=== PATIENT | male | born 1935 | race Caucasian/White ===

== ENCOUNTER 2018-08-13 09:12 | Inpatient (IN) ==
--- NOTE | 2018-08-13 09:43 | Emergency Department Note ---
Disposition Clinical Impression: Elevated troponin, Frail elderly, Tremor, Elbow injury, Abrasion, Head contusion, Colitis, Sepsis, UTI (urinary tract infection), Kidney stone, Prostatic hypertrophy, Hernia, Cholelithiasis, Pancreatitis, chronic Disposition: Admitted As Inpatient Referrals: Jael Hobson CNP [Primary Care Provider] - Forms: ED Satisfaction Letter, Work/School Release General Adult HPI - General Chief complaint: ED General Medical Stated complaint: Multiple complaints Time Seen by Provider: 08/13/18 09:16 - History of Present Illness HPI Narrative: 82-year-old male reports emergency department concerned with a fever. The patient states he took his temperature last night and had a temp of 101.7 at home. He was scheduled for a urologic procedure today, he called his urologist last evening, they recommended he come to the emergency department and reportedly could not do the procedure secondary to a fever. The patient reports he was tired last night and decided to come to the ED today instead of last evening. The patient states he has had some nonbloody diarrhea. No vomiting or abdominal pain. He is not anticoagulated. The patient denies chest pain shortness of breath cough runny nose or pain or sore throat. He has a Ortez catheter in place. There is no history of acute back pain. The patient describes prior spinal surgery. The patient states he slipped and fell and scraped his elbow and hit his head. He does not think he broke his elbow. No convulsions loss of consciousness or confusion noted. There is no history of slurred speech and lateral arm or leg weakness or numbness, facial drooping, or neck pain. The patient denies injury to the extremities otherwise. He has a chronic tremor and has been evaluated for Parkinson's prior but has no history of Parkinson's disease. Pain Scale: 0 - Related Data Home Medications Medication Instructions Recorded Confirmed Atorvastatin [Lipitor] 80 mg PO HS 04/02/17 08/13/18 Lisinopril [Zestril] 40 mg PO DAILY 04/02/17 08/13/18 Metoprolol [Lopressor] 50 mg PO BID 04/02/17 08/13/18 Nitroglycerin [Nitrostat] 0.4 mg SL PER PKG DI 04/02/17 08/13/18 Primidone [Mysoline] 50 mg PO BID 04/02/17 08/13/18 glipiZIDE [Glipizide ER] 5 mg PO DAILY 04/02/17 08/13/18 Ibuprofen [Motrin] 800 mg PO TID PRN 08/13/18 08/13/18 Tamsulosin HCl [Flomax] 0.4 mg PO HS 08/13/18 08/13/18 Allergies Allergy/AdvReac Type Severity Reaction Status Date / Time No Known Allergies Allergy Verified 08/09/18 14:59 All systems ED: reviewed and negative except as stated. Past Medical History - Past Medical History Medical history: Reports: diabetes, hyperlipidemia, hypertension Surgical history: Reports: coronary bypass (CABG) Psychiatric history: Reports: no psych history - Social History Smoking Status: Never smoker Smokeless Tobacco Status: No Alcohol use: Reports: none Drug use: Reports: none Physical Exam - General Limitations: no limitations General appearance: alert, in no apparent distress - Head Head exam: atraumatic, normocephalic, normal inspection - Eye Eye exam: Present: normal appearance, EOMI, miosis. Absent: scleral icterus, conjunctival injection - ENT ENT exam: normal exam, normal oropharynx, mucous membranes moist - Neck Neck exam: Present: normal inspection, full ROM, trachea midline. Absent: tenderness - Chest Chest inspection: Present: normal inspection, symmetric chest wall rise. Absent: tenderness - Respiratory Respiratory exam: Present: normal lung sounds bilaterally. Absent: respiratory distress, prolonged expiratory phase - Cardiovascular Cardiovascular exam: Present: regular rate, normal rhythm, normal heart sounds - Abdominal Exam Abdominal exam: Present: soft, Non-Tender, normal bowel sounds. Absent: tender ness, distention, guarding, rebound, rigidity, trauma - Extremities Exam Extremities exam: Present: full ROM, normal capillary refill. Absent: normal inspection (Right elbow skin tears are noted, no deep suturable laceration appreciated. There is a full range of motion in the wrists elbows shoulders ankles knees and hips without evidence of trauma to the extremities otherwise. The patient has no bony tenderness over the right elbow and a full range of mo tion reveals no limitation or eric bony or joint defect.), tenderness, pedal edema, joint swelling, calf tenderness - Expanded Lower Extremity Exam Neurovascular/Tendon exam: Present: normal capillary refill. Absent: motor deficit, sensory deficit, tendon deficit, extremity cold to touch, pallor - Back Exam Back exam: Present: normal inspection, full ROM, other (Chronic thoracic or lumbar deformity appreciated. No tenderness.). Absent: tenderness, CVA tenderness (R), CVA tenderness (L), paraspinal tenderness, vertebral tenderness - Neurological Exam Neurological exam: Present: alert, oriented X3, CN II-XII intact. Absent: motor sensory deficit - Psychiatric Psychiatric exam: Present: normal affect, normal mood - Skin Skin exam: Present: warm, dry, intact, normal color Course Vital Signs Temperature 98.6 F 08/13/18 09:16 Pulse Rate 71 08/13/18 09:16 Respiratory Rate 18 08/13/18 09:16 Blood Pressure 144/66 08/13/18 09:16 O2 Sat by Pulse Oximetry 93 08/13/18 09:16 Temperature 98.6 F 08/13/18 09:16 Pulse Rate 94 08/13/18 15:06 Respiratory Rate 20 08/13/18 15:06 Blood Pressure 132/104 08/13/18 15:06 O2 Sat by Pulse Oximetry 99 08/13/18 15:06 Oxygen Delivery Oxygen Delivery Room Air Medical Decision Making - MDM Narrative Medical decision making narrative: The patient is elderly, he describes a fever last evening, he called his urologist regarding the fever and they recommended he come to the ED for evaluation. He is reportedly scheduled for urologic procedure. The patient describes a few episodes of nonbloody diarrhea. There is no history of abdominal pain. He has a chronic tremor and slipped and fell and hit his head and scraped his elbow. He does not think he broke his elbow. CT scan of the head shows no acute disease. EKG shows left bundle branch block, chronic, troponin initially elevated, aspirin given. Urinalysis notably abnormal, white count elevated, the patient appears to meet SIRS/sepsis criteria lactate minimally elevated. IV fluids given Rocephin initially given. Blood cultures were sent. I discussed the case with the hospitalist on-call who recommended CT of the abdomen, CT obtained which shows multiple nonacute processes however colitis is noted. Given the patient is elderly, meets SIRS/sepsis criteria, demonstrates an elevated troponin with a known history of CAD and EKG abnormalities, and has an apparent UTI with colitis I thought it would be appropriate to admit the patient. The hospitalist has reviewed the CT report and recommended Zosyn. Zosyn was ordered. Aspirin was ordered. The patient denies any chest pain. Second troponin minimally elevated. The hospitalist has accepted the patient to his care. Cardiology will be consulted. The patient's highly agreeable to admission. He appears to be stable. - Lab Data Lab results reviewed: Yes I reviewed the patient's lab results. Result diagrams: 08/13/18 10:55 08/13/18 10:55 Lab Results 08/13/18 08/13/18 08/13/18 Range/Units 10:10 10:55 10:55 WBC 18.7 H (4.3-11.1) K/mcL RBC 4.51 (4.19-5.50) M/mcL Hgb 13.3 (12.9-16.9) g/dL Hct 39.1 (37.5-50.1) % MCV 86.7 (83.0-100.0) fL MCH 29.5 (28.0-33.3) pg MCHC 34.0 (31.6-35.5) g/dL RDW 12.5 (11.5-14.5) % Plt Count 167 (140-400) K/mcL MPV 10.6 (9.4-12.4) fL Immature Gran % 0.7 (0-4) % Seg Neutrophils % 83.2 % Lymphocytes % 5.1 % Monocytes % 10.1 % Eosinophils % 0.6 % Basophils % 0.3 % Neutrophils # 15.6 H (1.6-8.9) K/mcL Lymphocytes # 1.0 (0.6-4.6) K/mcL Monocytes # 1.9 H (0.0-1.3) K/mcL Eosinophils # 0.1 (0.0-0.6) K/mcL Basophils # 0.1 (0.0-0.2) K/mcL PT 15.2 H (9.4-12.1) Seconds INR 1.4 APTT 29.6 (26.0-36.0) Seconds Sodium (136-145) mEq/L Potassium (3.5-5.1) mEq/L Chloride (98-107) mEq/L Carbon Dioxide (23-29) mEq/L BUN (8-23) mg/dL Creatinine (0.70-1.30) mg/dL Est GFR ( Amer) (> 60) Est GFR (Non-Af Amer) (> 60) BUN/Creatinine Ratio (6-26) Glucose (70-105) mg/dL Calculated Osmolality (280-300) Lactic Acid (0.5-2.2) mmol/L Calcium (8.6-10.3) mg/dL Magnesium (1.6-2.6) mg/dL Total Bilirubin (0.3-1.0) mg/dL AST (13-39) Units/L ALT (7-52) Units/L Alkaline Phosphatase (34-104) Units/L Troponin I (< 0.04) ng/mL Serum Total Protein (6.4-8.9) g/dL Albumin (3.5-5.7) g/dL Globulin (2.4-3.5) g/dL Albumin/Globulin Ratio (1.1-2.2) Urine Color Dark Yellow (Yellow) Urine Clarity Turbid A (Clear) Urine pH 6.0 (5.0-8.0) pH Units Ur Specific [place] 1.011 (1.010-1.025) Urine Protein 30 H (Neg-Trace) mg/dL Urine Glucose (UA) Normal (Normal) mg/dL Urine Ketones Negative (Negative) mg/dL Urine Blood Small H (Negative) Urine Nitrite Positive A (Negative) Urine Bilirubin Negative (Negative) Urine Urobilinogen Normal (Normal) mg/dL Ur Leukocyte Esterase Large H (Negative) Urine Microscopic RBC Present (0-3) per hpf Urine Microscopic WBC TNTC H (0-3) per hpf Ur Squamous Epith Cells None Seen (None-Few) per lpf Urine Bacteria Many H (None-Few) per hpf Hyaline Casts None Seen (None-Few) per lpf Urine Yeast Present H (None Seen) per hpf Ur Culture Indicated? YES A (NO) 08/13/18 08/13/18 08/13/18 Range/Units 10:55 10:55 15:02 WBC (4.3-11.1) K/mcL RBC (4.19-5.50) M/mcL Hgb (12.9-16.9) g/dL Hct (37.5-50.1) % MCV (83.0-100.0) fL MCH (28.0-33.3) pg MCHC (31.6-35.5) g/dL RDW (11.5-14.5) % Plt Count (140-400) K/mcL MPV (9.4-12.4) fL Immature Gran % (0-4) % Seg Neutrophils % % Lymphocytes % % Monocytes % % Eosinophils % % Basophils % % Neutrophils # (1.6-8.9) K/mcL Lymphocytes # (0.6-4.6) K/mcL Monocytes # (0.0-1.3) K/mcL Eosinophils # (0.0-0.6) K/mcL Basophils # (0.0-0.2) K/mcL PT (9.4-12.1) Seconds INR APTT (26.0-36.0) Seconds Sodium 132 L (136-145) mEq/L Potassium 3.2 L (3.5-5.1) mEq/L Chloride 104 (98-107) mEq/L Carbon Dioxide 24 (23-29) mEq/L BUN 14 (8-23) mg/dL Creatinine 0.97 (0.70-1.30) mg/dL Est GFR ( Amer) > 60 (> 60) Est GFR (Non-Af Amer) > 60 (> 60) BUN/Creatinine Ratio 14 (6-26) Glucose 165 H (70-105) mg/dL Calculated Osmolality 278 L (280-300) Lactic Acid 2.3 H 1.6 (0.5-2.2) mmol/L Calcium 9.2 (8.6-10.3) mg/dL Magnesium 1.6 (1.6-2.6) mg/dL Total Bilirubin 1.3 H (0.3-1.0) mg/dL AST 17 (13-39) Units/L ALT 8 (7-52) Units/L Alkaline Phosphatase 80 (34-104) Units/L Troponin I 0.07 H* (< 0.04) ng/mL Serum Total Protein 6.1 L (6.4-8.9) g/dL Albumin 3.4 L (3.5-5.7) g/dL Globulin 2.7 (2.4-3.5) g/dL Albumin/Globulin Ratio 1.3 (1.1-2.2) Urine Color (Yellow) Urine Clarity (Clear) Urine pH (5.0-8.0) pH Units Ur Specific [place] (1.010-1.025) Urine Protein (Neg-Trace) mg/dL Urine Glucose (UA) (Normal) mg/dL Urine Ketones (Negative) mg/dL Urine Blood (Negative) Urine Nitrite (Negative) Urine Bilirubin (Negative) Urine Urobilinogen (Normal) mg/dL Ur Leukocyte Esterase (Negative) Urine Microscopic RBC (0-3) per hpf Urine Microscopic WBC (0-3) per hpf Ur Squamous Epith Cells (None-Few) per lpf Urine Bacteria (None-Few) per hpf Hyaline Casts (None-Few) per lpf Urine Yeast (None Seen) per hpf Ur Culture Indicated? (NO) 08/13/18 Range/Units 15:02 WBC (4.3-11.1) K/mcL RBC (4.19-5.50) M/mcL Hgb (12.9-16.9) g/dL Hct (37.5-50.1) % MCV (83.0-100.0) fL MCH (28.0-33.3) pg MCHC (31.6-35.5) g/dL RDW (11.5-14.5) % Plt Count (140-400) K/mcL MPV (9.4-12.4) fL Immature Gran % (0-4) % Seg Neutrophils % % Lymphocytes % % Monocytes % % Eosinophils % % Basophils % % Neutrophils # (1.6-8.9) K/mcL Lymphocytes # (0.6-4.6) K/mcL Monocytes # (0.0-1.3) K/mcL Eosinophils # (0.0-0.6) K/mcL Basophils # (0.0-0.2) K/mcL PT (9.4-12.1) Seconds INR APTT (26.0-36.0) Seconds Sodium (136-145) mEq/L Potassium (3.5-5.1) mEq/L Chloride (98-107) mEq/L Carbon Dioxide (23-29) mEq/L BUN (8-23) mg/dL Creatinine (0.70-1.30) mg/dL Est GFR ( Amer) (> 60) Est GFR (Non-Af Amer) (> 60) BUN/Creatinine Ratio (6-26) Glucose (70-105) mg/dL Calculated Osmolality (280-300) Lactic Acid (0.5-2.2) mmol/L Calcium (8.6-10.3) mg/dL Magnesium (1.6-2.6) mg/dL Total Bilirubin (0.3-1.0) mg/dL AST (13-39) Units/L ALT (7-52) Units/L Alkaline Phosphatase (34-104) Units/L Troponin I 0.13 H* (< 0.04) ng/mL Serum Total Protein (6.4-8.9) g/dL Albumin (3.5-5.7) g/dL Globulin (2.4-3.5) g/dL Albumin/Globulin Ratio (1.1-2.2) Urine Color (Yellow) Urine Clarity (Clear) Urine pH (5.0-8.0) pH Units Ur Specific [place] (1.010-1.025) Urine Protein (Neg-Trace) mg/dL Urine Glucose (UA) (Normal) mg/dL Urine Ketones (Negative) mg/dL Urine Blood (Negative) Urine Nitrite (Negative) Urine Bilirubin (Negative) Urine Urobilinogen (Normal) mg/dL Ur Leukocyte Esterase (Negative) Urine Microscopic RBC (0-3) per hpf Urine Microscopic WBC (0-3) per hpf Ur Squamous Epith Cells (None-Few) per lpf Urine Bacteria (None-Few) per hpf Hyaline Casts (None-Few) per lpf Urine Yeast (None Seen) per hpf Ur Culture Indicated? (NO) - Radiology Data Radiology results reviewed: Yes I reviewed the patient's radiology results.
[2018-08-13] MEDS ORDERED: Tdap (Boostrix) Vaccine 0.5 ML SYRINGE IM ONE (09:52)
[2018-08-13 10:33] LABS: Bilirubin,Urine Negative (Negative); Blood,Urine Small (Negative); Clarity,Urine Turbid (Clear); Color,Urine Dark Yellow (Yellow); Glucose,Urine (UA) Normal (Normal); Ketones,Urine Negative (Negative); Leukocyte Esterase,Urine Large (Negative); Nitrite,Urine Positive (Negative); Protein,Urine 30 mg/dL (Neg-Trace); Specific Gravity,Urine 1.011 (1.010-1.025); Urobilinogen,Urine Normal (Normal)
[2018-08-13 10:37] LABS: Bacteria,Urine Many per hpf (None-Few); Hyaline Casts,Urine None Seen per lpf (None-Few); Squamous Epithelial Cell,Urine None Seen per lpf (None-Few); WBC,Urine TNTC per hpf (0-3)
[2018-08-13 10:54] LABS: RBC,Urine Present per hpf (0-3); Yeast,Urine Present per hpf (None Seen)
[2018-08-13 11:16] LABS: Basophils # 0.1 K/mcL (0.0-0.2); Basophils % 0.3 %; Eosinophils # 0.1 K/mcL (0.0-0.6); Eosinophils % 0.6 %; Hematocrit 39.1 % (37.5-50.1); Hemoglobin 13.3 g/dL (12.9-16.9); Immature Granulocytes % 0.7 % (0-4); Lymphocytes % 5.1 %; Mean Corpuscular Hemoglobin 29.5 pg (28.0-33.3); Mean Corpuscular Volume 86.7 fL (83.0-100.0); Mean Platelet Volume 10.6 fL (9.4-12.4); Monocytes # 1.9 K/mcL (0.0-1.3); Monocytes % 10.1 %; Neutrophils # 15.6 K/mcL (1.6-8.9); Platelet Count 167 K/mcL (140-400); Red Blood Count 4.51 M/mcL (4.19-5.50); Red Cell Distribution Width 12.5 % (11.5-14.5); Segmented Neutrophils % 83.2 %
[2018-08-13 11:25] LABS: INR 1.4; Prothrombin Time 15.2 Seconds (9.4-12.1)
[2018-08-13 11:28] LABS: Activated Partial Thrombo Time 29.6 Seconds (26.0-36.0)
[2018-08-13 11:39] LABS: Alanine Aminotransferase 8 Units/L (7-52); Albumin 3.4 g/dL (3.5-5.7); Albumin/Globulin Ratio 1.3 (1.1-2.2); Alkaline Phosphatase 80 Units/L (34-104); Aspartate Amino Transferase 17 Units/L (13-39); BUN/Creatinine Ratio 14 (6-26); Bilirubin,Total 1.3 mg/dL (0.3-1.0); Blood Urea Nitrogen 14 mg/dL (8-23); Calcium 9.2 mg/dL (8.6-10.3); Carbon Dioxide 24 mEq/L (23-29); Chloride 104 mEq/L (98-107); Globulin 2.7 g/dL (2.4-3.5); Glucose 165 mg/dL (70-105); Osmolality,Calculated 278 (280-300); Potassium 3.2 mEq/L (3.5-5.1); Sodium 132 mEq/L (136-145); Total Protein 6.1 g/dL (6.4-8.9); Troponin I 0.07 ng/mL (< 0.04); eGFR For Non-African Americans > 60 (> 60)
[2018-08-13] MEDS ORDERED: cefTRIAXone 1,000 MG in Water for inj. (sterile) 20 ML 10 ML IVP ONE (11:40)
[2018-08-13] MEDS ORDERED: Aspirin 325 MG TABLET PO ONE (11:40)
[2018-08-13] MEDS ORDERED: 0.9 % Sodium Chloride 1,000 ML IVC ONE ×2 (11:40→14:12)
[2018-08-13] MEDS ORDERED: Isovue-370 500 ML BOTTLE IVP ONE (11:57)
[2018-08-13 13:16] LABS: Magnesium 1.6 mg/dL (1.6-2.6)
[2018-08-13] MEDS ORDERED: Piperacillin/Tazobactam 3.375 GM in 0.9 % Sodium Chloride Mini Bag 100 ML IVPB ONE (15:36)
[2018-08-13 16:19] LABS: Lipase 3 Units/L (11-82)
[2018-08-13] MEDS ORDERED: Naloxone 0.4 MG/ML INJ IVP PRN (19:15)
[2018-08-13] MEDS ORDERED: Nitroglycerin 0.4 MG TAB.SUBL SL PRN (19:30)
[2018-08-13] MEDS: 0.9 % Sodium Chloride w KCl 20 MEQ/1,000 ML MLS IVC SCH (21:00)
[2018-08-13] MEDS: Primidone 50 MG TABLET PO SCH (21:01)
--- NOTE | 2018-08-13 21:10 | Internal Med History&Physical ---
Date of Encounter: 08/13/18 Time of Encounter: 19:00 Internal Medicine - H&P: HPI Chief complaint: Non-bladdy diarrhea/sepsis Admitted From: Home Plans for Post Hospital Care: Home History of present illness: The patient is an 82-year-old male. He has had nonbloody diarrhea without nausea or vomiting or abdominal pain for about 3 days. He developed fever of 101.7 yesterday late afternoon. He came to the emergency room last night for evaluation and treatment. He has not been feeling well for the last 2-3 weeks. He was treated with an antibiotic at the beginning of that period of time. He developed difficulty voiding about 3 weeks ago. He received Ortez catheter. After about 3 days it was discontinued. It had to be reinserted a few days later. The catheter was supposed to be removed todayshe was scheduled for some urological procedure. He feels weak. He has decreased intake of foods and fluids. Denies chest pain and difficulty breathing. Denies coughing and wheezing. The patient has had unsteady gait for at least a few years. He sleeps an hour yesterday; scrapped his right elbow and hit his head. It did not change his ability to ambulate for the future. PAST MEDICAL HX: He has had coronary artery disease; had CABG surgery in the past. He is treated for type 2 diabetes mellitus, hypertension, hyperlipidemia, BPH and tremor. He takes when necessary ibuprofen for arthritis. PAST FAMILY HX: See below PAST SOCIAL HX: See below REVIEW OF SYSTEMS: All 14 organ systems were reviewed by me with the patient. Positive and pertinent negative findings are listed above. The rest of organ systems is negative. PHYSICAL EXAM: Skin: Free of rash and discoloration. Eyes: Sclera is white. There is no discharge from eyes. ENMT: Oral/pharyngeal mucosa is normal in appearance. There is no discharge from nose or ears. Respiratory: Normal breath sounds with no crackles and wheezes bilaterally. CV: Heart is regular with no gallop or murmur. GI: Abdomen is flat and soft with no palpable mass or visceromegaly. : There is no tenderness in patient's flanks bilaterally. Neuro exam: He has good strength in upper and lower extremities. He has normal eye movements. Psychiatric: He has normal affect. His thought process is appropriate to the situation. ADDITIONAL DATA: Chest x-ray shows normal findings. CT of head/brain without contrast shows vague area of low attenuation involving the left occipital lobe; without sulcal effacement. This likely represents a subacute or chronic infarct. It also shows diffuse cerebral atrophy with chronic small vessel ischemic disease. CT of the abdomen/pelvis with IV contrast shows diffuse circumferential wall thickening of the entirety of the colon. Consistent with a diffuse infectious or inflammatory pancolitis. There is no evidence of pneumatosis, perforation, or free air. It shows bilateral nonobstructing nephrolithiasis, chronic pancreatitis, cholelithiasis, bilateral renal cysts, mild gastroesophageal reflux, mild prostatomegaly and mild to moderate sized left inguinal hernia. CBC shows hemoglobin of 13.3 with a WBC of 18.7 thousand and normal platelet count. EKG now shows normal sinus rhythm without evidence for ischemia or myocardial infarction. BMP shows potassium of 3.2 and random glucose of 165. Otherwise, it is normal. Hepatic panel shows bilirubin of 1.3. Otherwise, it is normal. His troponin is 0.07 and the 0.13. UA shows changes typical for urinary tract infection. A/P: Pancolitis as/possible urinary tract infection/sepsis. I will offer him IV Zosyn and IV Flagyl. He will be on IV normal saline with addition of potassium chloride (hypokalemic) and a clear liquids diet. I will consult the GI service tomorrow morning. Routine stool culture and testing for C. difficile. Possible UTI/sepsis. He received 2 L of IV fluid in the emergency department. I will continue IV fluids at 75 cc/h. He will be on IV Zosyn and IV Flagyl. Elevated troponin. It could represent demand ischemia in the setting of sepsis. The patient has underlying coronary artery disease (had CABG surgery). I feel, that he is not a candidate for any Cardiologic interventions at this time. BPH with urinary tract obstruction. Ortez catheter will stay in. I will consult urology, if needed. He is not a candidate for any urologic interventions at this time. His other problems are listed above in past medical history. That is stable/under control. Past Med Surg Social Fam HX - Past Medical History Medical history: diabetes, hyperlipidemia, hypertension Additional medical history: Coronary Artery disease status post CABG. Tremors Psychiatric history: no psych history - Past Surgical History Surgical History: coronary bypass (CABG) Additional surgical history: Back. Shoulder - Social History Smoking Status: Never smoker Smokeless Tobacco Status: No Alcohol use: none Drug use: none - Family History Sister Hx Family Cancer: (sister 1 stomach cancer sister 2 breast cancer) Internal Medicine - H&P: Meds Atorvastatin [Lipitor] 80 mg PO HS 04/02/17 [History] Lisinopril [Zestril] 40 mg PO DAILY 04/02/17 [History] Metoprolol [Lopressor] 50 mg PO BID 04/02/17 [History] Nitroglycerin [Nitrostat] 0.4 mg SL PER PKG DI 04/02/17 [History] Primidone [Mysoline] 50 mg PO BID 04/02/17 [History] glipiZIDE [Glipizide ER] 5 mg PO DAILY 04/02/17 [History] Ibuprofen [Motrin] 800 mg PO TID PRN 08/13/18 [History] Tamsulosin HCl [Flomax] 0.4 mg PO HS 08/13/18 [History] Allergy/AdvReac Type Severity Reaction Status Date / Time No Known Allergies Allergy Verified 08/09/18 14:59 - Constitutional Vitals: Temp Pulse Resp BP Pulse Ox 99.2 F 102 16 121/71 95 08/13/18 19:59 08/13/18 19:59 08/13/18 19:59 08/13/18 19:59 08/13/18 19:59 General appearance: Present: A&O X 3, no acute distress, answers questions appropriately Exam: xx Internal Med - H&P Results - Labs CBC & Chem 7: 08/13/18 10:55 08/13/18 10:55 Labs: Short CBC 08/13/18 Range/Units 10:55 WBC 18.7 H (4.3-11.1) K/mcL Hgb 13.3 (12.9-16.9) g/dL Hct 39.1 (37.5-50.1) % Plt Count 167 (140-400) K/mcL Neutrophils # 15.6 H (1.6-8.9) K/mcL BMP 08/13/18 10:55 Sodium 132 L Potassium 3.2 L Chloride 104 Carbon Dioxide 24 BUN 14 Creatinine 0.97 Glucose 165 H Calcium 9.2 Cardiac Enzymes 08/13/18 08/13/18 Range/Units 10:55 15:02 Troponin I 0.07 H* 0.13 H* (< 0.04) ng/mL Liver Function 08/13/18 Range/Units 10:55 Total Bilirubin 1.3 H (0.3-1.0) mg/dL AST 17 (13-39) Units/L ALT 8 (7-52) Units/L Alkaline Phosphatase 80 (34-104) Units/L Albumin 3.4 L (3.5-5.7) g/dL Urine 08/13/18 Range/Units 10:10 Urine Color Dark Yellow (Yellow) Urine Clarity Turbid A (Clear) Urine pH 6.0 (5.0-8.0) pH Units Ur Specific [place] 1.011 (1.010-1.025) Urine Protein 30 H (Neg-Trace) mg/dL Urine Glucose (UA) Normal (Normal) mg/dL - Impressions ITS Impressions Chest X-Ray 08/13/18 09:43 IMPRESSION: 1. No active pulmonary disease. D/ / Benja Banuelos MD / Benja Banuelos MD Interpreting Provider: Benja Banuelos MD Head CT 08/13/18 09:51 IMPRESSION: 1. Vague area of low attenuation involving the left occipital lobe without sulcal effacement. This likely represents a subacute to chronic infarct. I would recommend clinical correlation and further evaluation with MRI. 2. Diffuse cerebral atrophy with chronic small vessel ischemic disease. D/ / Benja Banuelos MD / Benja Banuelos MD Interpreting Provider: Benja Banuelos MD Abdomen/Pelvis CT 08/13/18 11:57 IMPRESSION: 1. Diffuse circumferential wall thickening of the entirety of the colon, consistent with a diffuse infectious or inflammatory pancolitis. There is no evidence of pneumatosis, perforation, or free air. 2. Bilateral nonobstructing nephrolithiasis, without evidence of ureteral calculus or hydronephrosis. There is a layering calcification within the urinary bladder. 3. Chronic pancreatitis. 4. Cholelithiasis. 5. Bilateral renal cysts. 6. Mild gastroesophageal reflux. 7. Mild prostatomegaly. 8. Mild to moderate sized left inguinal hernia. D/ / 08/13/2018 15:24:20 Marcell Hutchins MD / sierra Interpreting Provider: Marcell Hutchins MD - Time Spent With Patient Total time spent is greater than 50% in coordination of care (as documented) at patient's floor/unit and/or counseling patient:
[2018-08-14] MEDS: MetroNIDAZOLE 500 MG/100 ML 500 MG/100 ML BAG IVPB SCH ×2 (00:34→06:23)
[2018-08-14] MEDS: Piperacillin/Tazobactam 3.375 GM in 0.9 % Sodium Chloride Mini Bag 100 ML IVPB SCH ×2 (02:39→08:46)
[2018-08-14 05:23] LABS: Basophils # 0.1 K/mcL (0.0-0.2); Basophils % 0.3 %; Eosinophils # 0.1 K/mcL (0.0-0.6); Eosinophils % 0.6 %; Hematocrit 33.6 % (37.5-50.1); Immature Granulocytes % 3.9 % (0-4); Lymphocytes # 1.3 K/mcL (0.6-4.6); Lymphocytes % 7.3 %; Mean Corpuscular HGB Conc 33.3 g/dL (31.6-35.5); Mean Platelet Volume 10.9 fL (9.4-12.4); Monocytes % 11.3 %; Neutrophils # 13.7 K/mcL (1.6-8.9); Platelet Count 155 K/mcL (140-400); Red Blood Count 3.86 M/mcL (4.19-5.50); Red Cell Distribution Width 12.4 % (11.5-14.5); Segmented Neutrophils % 76.6 %
[2018-08-14 05:24] LABS: Hemoglobin 11.2 g/dL (12.9-16.9)
[2018-08-14 05:44] LABS: BUN/Creatinine Ratio 11 (6-26); Blood Urea Nitrogen 10 mg/dL (8-23); Calcium 8.4 mg/dL (8.6-10.3); Carbon Dioxide 20 mEq/L (23-29); Chloride 106 mEq/L (98-107); Glucose 153 mg/dL (70-105); Magnesium 1.4 mg/dL (1.6-2.6); Osmolality,Calculated 278 (280-300); Potassium 3.2 mEq/L (3.5-5.1); Sodium 133 mEq/L (136-145); eGFR For Non-African Americans > 60 (> 60)
[2018-08-14] MEDS: Primidone 50 MG TABLET PO SCH ×2 (08:45→21:22)
[2018-08-14 09:18] LABS: Troponin I 0.21 ng/mL (< 0.04)
--- NOTE | 2018-08-14 10:34 | Cardiology Consult Note ---
Date of Encounter: 08/14/18 Time of Encounter: 10:31 Assessment and Plan (1) Elevated troponin Current Visit: Yes Status: Acute Patient presented for diarrhea and fever, elevated troponins found on admission Denies chest pain or pressure or shortness of breath, admitteed for pancolitis, possible urosepsis Has history of CAD with remote history of CABG 15 years ago EKG NSR with first degree AV block, LBBB, non specific ST changes in anterior leads Troponins trending up to 0.21 from 0.07 Differential includes ACS vs demand ischemia from pancolitis/urosepsis Recommend echo, possible stress based on results Patient not likely candidate for immediate intervention Recommend continued supportive care Further recommendations per Dr. Cronin (2) CAD (coronary artery disease) Current Visit: No Status: Chronic History of CAD with remote CABG, no recent work up here, recommendations as above Qualifiers: Coronary Disease-Associated Artery/Lesion type: bypass graft [place] vs. transplanted heart: [place] heart Associated angina: without angina Qualified Code(s): I25.810 - Atherosclerosis of coronary artery bypass graft(s) without angina pectoris Discussion w patient/family: The assessment and plan as outlined above was discussed with the patient and/or family members who expressed understanding and agreement. All questions were answered. Thank you for involving us in the care of your patient. Please call with any questions. History of Present Illness Consult date: 08/14/18 Requesting physician: Edy Rock Consult reason: elevated troponins Chief complaint: fever History of present illness: Mr. Valderrama is a 82 year old male with a past medical history of CAD with remote CABG, DM, HTN, HLD, BPH. He states he was originally scheduled to come to the hospital yesterday to have his urinary catheter removed along with some other urological procedure. However he developed a fever along with diarrhea and was sent to the ED instead. He denies any chest pain or pressure, denies shortness of breath. Admits to diarrhea and weakness/fatigue. Past Med Surg Social Fam HX - Past Medical History Medical history: diabetes, hyperlipidemia, hypertension Additional medical history: Coronary Artery disease status post CABG. Tremors Psychiatric history: no psych history - Past Surgical History Surgical History: coronary bypass (CABG) Additional surgical history: Back. Shoulder - Social History Smoking Status: Never smoker Smokeless Tobacco Status: No Alcohol use: none Drug use: none - Family History Sister Hx Family Cancer: (sister 1 stomach cancer sister 2 breast cancer) Medications and Allergies Atorvastatin [Lipitor] 80 mg PO HS 04/02/17 [History] Lisinopril [Zestril] 40 mg PO DAILY 04/02/17 [History] Metoprolol [Lopressor] 50 mg PO BID 04/02/17 [History] Nitroglycerin [Nitrostat] 0.4 mg SL PER PKG DI 04/02/17 [History] Primidone [Mysoline] 50 mg PO BID 04/02/17 [History] glipiZIDE [Glipizide ER] 5 mg PO DAILY 04/02/17 [History] Ibuprofen [Motrin] 800 mg PO TID PRN 08/13/18 [History] Tamsulosin HCl [Flomax] 0.4 mg PO HS 08/13/18 [History] Allergy/AdvReac Type Severity Reaction Status Date / Time No Known Allergies Allergy Verified 08/09/18 14:59 All Systems Review: The remainder of the systems were reviewed and are negative - Constitutional Constitutional: fatigue, fever(s), weakness - Cardiovascular Cardiovascular: no chest pain at rest, no chest pain with exertion, no dyspnea at rest, no dyspnea on exertion, no irregular heart rhythm, no radiating jaw, neck or arm pain - Gastrointestinal Gastrointestinal: diarrhea, no abdominal pain, no nausea - Genitourinary Genitourinary: dysuria - Integumentary Integumentary: no erythema - Neurological Neurological: no abnormal speech, no focal weakness, no syncope Physical Examination Vital Signs, Last 4 Hours Temp Pulse Resp BP Pulse Ox 08/14/18 07:05 98.5 F 87 18 99/65 97 General: No Apparent Distress, Other (somnolent) HEENT: Normocephaly, Mucus Membranes Moist, Other (mild abrasions) Neck: No JVD, Normal carotid pulses Cardiac: Reg Rate and Rhythm, Normal S1 and S2, No Murmur Lungs: Normal Breath Sounds, No Wheeze, Rales, Rhonchi Neuro: Alert and responsive, No focal deficits noted Abdomen: Soft, Non-Tender, Other (hyperractiv bowel sounds) Skin: No rashes noted on visualized skin Musculoskeletal: No Chest Wall Tenderness Extremities: No Edema, Normal Pulses Results 08/14/18 04:27 08/14/18 04:27 Lab Results 08/13/18 08/13/18 08/13/18 10:55 10:55 10:55 WBC 18.7 H Hgb 13.3 Hct 39.1 Plt Count 167 INR 1.4 APTT 29.6 Sodium 132 L Potassium 3.2 L Chloride 104 Carbon Dioxide 24 BUN 14 Creatinine 0.97 Glucose 165 H Calcium 9.2 Magnesium 1.6 Total Bilirubin 1.3 H AST 17 ALT 8 Alkaline Phosphatase 80 Troponin I 0.07 H* Lipase 3 L 08/13/18 08/14/18 08/14/18 15:02 04:27 04:27 WBC 17.9 H Hgb 11.2 L D Hct 33.6 L Plt Count 155 INR APTT Sodium 133 L Potassium 3.2 L Chloride 106 Carbon Dioxide 20 L BUN 10 Creatinine 0.91 Glucose 153 H Calcium 8.4 L Magnesium 1.4 L Total Bilirubin AST ALT Alkaline Phosphatase Troponin I 0.13 H* 0.21 H* Lipase - Imaging and Cardiology Chest Xray: report reviewed - EKG Interpretation EKG results cardiology: personally reviewed, sinus rhythm (sinus rhythm with first degree AV block, left bundle branch block, upsloped ST in anterior leads with peaked Ts) Consult Discharge Plan - Plan Referrals: Jael Hobson, [facility] [Primary Care Provider] -
--- NOTE | 2018-08-14 11:07 | Internal Med Progress Note ---
<Lynnette Walker - Last Filed: 08/14/18 11:05> Hospitalist Progress Note - Encounter Date of Encounter: 08/14/18 Time of Encounter: 09:25 - Subjective Interval History: Mr. Trevizo is a 82-year-old male with a past medical history of diabetes, hypertension and CAD status post CABG who presented to the ED with fever, nausea, and diarrhea. Patient states that he was having very frequent episodes of diarrhea previous to coming in. He states that he is not currently having any abdominal pain, chest pain, or difficulty breathing. - Exam Vitals: Temp Pulse Resp BP Pulse Ox 98.5 F 87 18 99/65 97 08/14/18 07:05 08/14/18 07:05 08/14/18 07:05 08/14/18 07:05 08/14/18 07:05 Exam: Constitutional: Alert, in no acute distress Head: Normocephalic, atraumatic Heart: Normal, regular rate and rhythm, no murmurs Lungs: Clear to auscultation, no wheezes, rales, or rhonchi Abdomen: Soft, nondistended, nontender, bowel sounds present and normal, no guarding or rigidity. Extremities: No edema, No clubbing, radial pulse +2/4, capillary refill <2sec. Skin: Skin warm and dry, no lesions, no rashes, no jaundice Neurologic: Cranial nerves II through XII grossly intact, strength 5/5 in all extremities, negative romberg, Psych: Cooperative with exam, good eye contact, cognitive function intact, speech clear, thought process logical, and goal directed - Assessment and Plan (1) Sepsis Current Visit: Yes Status: Acute Assessment and Plan: Elevated heart rate, WBC elevated, initial lactic acid 2.3 and source of infection. Lactic acid repeat 1.6. WBC slightly improvement. Patient was given 2L of NS. Ct scan of abdomen showed pancolitis. Patient positive for c-diff. UA suggestive of bacterial infeciton. Abnormal CT head but no symptoms recently of speech slurring of focal weakness. Negative Romberg. Patient already takes ASA. Heart rate much improved. Plan: - antibiotics: Ceftriaxone ( day 2) and oral Vanco (day 1) - lactic acid improved - blood cultures pending - urine culture pending - stool culture pending - diet: clear liquid diet (2) C. difficile colitis Current Visit: Yes Status: Acute Assessment and Plan: + c-diff. Patient was on antibiotics a couple of weeks ago. See plan above. Continue oral vanco. (3) BPH with obstruction/lower urinary tract symptoms Current Visit: Yes Status: Acute Assessment and Plan: Continue crespo. Will f/u outpatient with urology. (4) UTI (urinary tract infection) Current Visit: Yes Status: Acute Assessment and Plan: Likely due to long-indwelling crespo catheter. Treat with cetriaxone for 3 days. See plan above. (5) Elevated troponin Current Visit: Yes Status: Acute Assessment and Plan: Troponin= 0.07, 0.13, 0.21. Cardiology consulted. patient is not having chest pain. His EKG does show a LBBB but does not meet S[place] criteria. HR 83bpm, QTc 444. Awaiting cardiology recommendations. (6) CAD (coronary artery disease) Current Visit: No Status: Chronic Assessment and Plan: Hx of CABG. Cardiology consulted for elevated troponin. Continue BB, BEAU, and statin. (7) Hypertension Current Visit: Yes Status: Acute Assessment and Plan: well controlled. currently on home medications. Continue metoprolol 50mg BID, Lisinopril 40mg daily. (8) Hypokalemia Current Visit: Yes Status: Acute Assessment and Plan: K = 3.2, replaced with KCl 40 meq. Recheck in the AM. (9) Hypomagnesemia Current Visit: Yes Status: Acute Assessment and Plan: Mg = 1.4, replaced with 2g. Recheck in the AM. DVT Prophylaxis: Heparin subcutaneous - Time Spent with Patient Total time spent is greater than 50% in coordination of care (as documented) at patient's floor/unit and/or counseling patient: Internal Medicine: Result - Labs CBC & Chem 7: 08/14/18 04:27 08/14/18 04:27 Labs: Short CBC 08/13/18 08/14/18 Range/Units 10:55 04:27 WBC 18.7 H 17.9 H (4.3-11.1) K/mcL Hgb 13.3 11.2 L D (12.9-16.9) g/dL Hct 39.1 33.6 L (37.5-50.1) % Plt Count 167 155 (140-400) K/mcL Neutrophils # 15.6 H 13.7 H (1.6-8.9) K/mcL BMP 08/13/18 08/14/18 10:55 04:27 Sodium 132 L 133 L Potassium 3.2 L 3.2 L Chloride 104 106 Carbon Dioxide 24 20 L BUN 14 10 Creatinine 0.97 0.91 Glucose 165 H 153 H Calcium 9.2 8.4 L Cardiac Enzymes 08/13/18 08/13/18 08/14/18 Range/Units 10:55 15:02 04:27 Troponin I 0.07 H* 0.13 H* 0.21 H* (< 0.04) ng/mL Liver Function 08/13/18 Range/Units 10:55 Total Bilirubin 1.3 H (0.3-1.0) mg/dL AST 17 (13-39) Units/L ALT 8 (7-52) Units/L Alkaline Phosphatase 80 (34-104) Units/L Albumin 3.4 L (3.5-5.7) g/dL - ABG Interpretation ABG results: PT/INR, D-dimer PT 15.2 Seconds (9.4-12.1) H 08/13/18 10:55 - Impressions Impressions Abdomen/Pelvis CT 08/13/18 11:57 IMPRESSION: 1. Diffuse circumferential wall thickening of the entirety of the colon, consistent with a diffuse infectious or inflammatory pancolitis. There is no evidence of pneumatosis, perforation, or free air. 2. Bilateral nonobstructing nephrolithiasis, without evidence of ureteral calculus or hydronephrosis. There is a layering calcification within the urinary bladder. 3. Chronic pancreatitis. 4. Cholelithiasis. 5. Bilateral renal cysts. 6. Mild gastroesophageal reflux. 7. Mild prostatomegaly. 8. Mild to moderate sized left inguinal hernia. D/ / 08/13/2018 15:24:20 Marcell Hutchins MD / sierra Interpreting Provider: Marcell Hutchins MD Consult Discharge Plan - Plan Referrals: Jael Hobson, IN[facility]ER [Primary Care Provider] - <Edy Rock - Last Filed: 08/14/18 13:40> Hospitalist Progress Note - Encounter Date of Encounter: 08/14/18 - Exam Vitals: Temp Pulse Resp BP Pulse Ox 98.0 F 82 19 97/59 94 08/14/18 11:22 08/14/18 11:22 08/14/18 11:22 08/14/18 11:22 08/14/18 11:22 - Assessment and Plan (1) Sepsis Current Visit: Yes Status: Acute (2) UTI (urinary tract infection) Current Visit: Yes Status: Acute (3) CAD (coronary artery disease) Current Visit: No Status: Chronic (4) BPH with obstruction/lower urinary tract symptoms Current Visit: Yes Status: Acute (5) C. difficile colitis Current Visit: Yes Status: Acute (6) Hypertension Current Visit: Yes Status: Acute (7) Elevated troponin Current Visit: Yes Status: Acute (8) Hypokalemia Current Visit: Yes Status: Acute (9) Hypomagnesemia Current Visit: Yes Status: Acute - Time Spent with Patient Total time spent is greater than 50% in coordination of care (as documented) at patient's floor/unit and/or counseling patient: Internal Medicine: Result - Labs CBC & Chem 7: 08/14/18 04:27 08/14/18 04:27 Labs: Short CBC 08/14/18 Range/Units 04:27 WBC 17.9 H (4.3-11.1) K/mcL Hgb 11.2 L D (12.9-16.9) g/dL Hct 33.6 L (37.5-50.1) % Plt Count 155 (140-400) K/mcL Neutrophils # 13.7 H (1.6-8.9) K/mcL BMP 08/13/18 08/14/18 10:55 04:27 Sodium 132 L 133 L Potassium 3.2 L 3.2 L Chloride 104 106 Carbon Dioxide 24 20 L BUN 14 10 Creatinine 0.97 0.91 Glucose 165 H 153 H Calcium 9.2 8.4 L Cardiac Enzymes 08/13/18 08/13/18 08/14/18 Range/Units 10:55 15:02 04:27 Troponin I 0.07 H* 0.13 H* 0.21 H* (< 0.04) ng/mL Liver Function 08/13/18 Range/Units 10:55 Total Bilirubin 1.3 H (0.3-1.0) mg/dL AST 17 (13-39) Units/L ALT 8 (7-52) Units/L Alkaline Phosphatase 80 (34-104) Units/L Albumin 3.4 L (3.5-5.7) g/dL - ABG Interpretation ABG results: PT/INR, D-dimer PT 15.2 Seconds (9.4-12.1) H 08/13/18 10:55 - Impressions Impressions Abdomen/Pelvis CT 08/13/18 11:57 IMPRESSION: 1. Diffuse circumferential wall thickening of the entirety of the colon, consistent with a diffuse infectious or inflammatory pancolitis. There is no evidence of pneumatosis, perforation, or free air. 2. Bilateral nonobstructing nephrolithiasis, without evidence of ureteral calculus or hydronephrosis. There is a layering calcification within the urinary bladder. 3. Chronic pancreatitis. 4. Cholelithiasis. 5. Bilateral renal cysts. 6. Mild gastroesophageal reflux. 7. Mild prostatomegaly. 8. Mild to moderate sized left inguinal hernia. D/ / 08/13/2018 15:24:20 Marcell Hutchins MD / sierra Interpreting Provider: Marcell Hutchins MD - Attending Attestation I examined this patient and my medical decision-making was reviewed with the Resident Physician Dr. Walker. I agree with the documented findings, disposition and treatment plan as described except to the extent set forth below. Ms. Valderrama is a 82 y/o M with known PMH of HTN, HLD, CAD s/p CABG, DM2 and BPH pt presented to ER with non bloody diarrhea and lower abdominal pain. His CT of Abd showed diffuse [place]incoln colitis. He did have elevated trop, peaked @ 0.21. He denied any CP. Gen: A, A, O x 3 Chest: Diminished BS b/l, no crackles Heart: S1S2 + RRR 2/6 ESM Abd: Soft, mild tender in lower abd region, BS+ a/p 1. Acute diffuse [place]incoln colitis due to C. Diff 2. Sepsis with Inf colitis IV hydration d.c Zosyn and Flagyl started him on PO Vanco 3. Acute NSTEMI due to demand ischemia will f/u on Echo Card consulted 4. Acute UTI on Rocephin <WalkerLynnette - Last Filed: 08/14/18 11:05> (1) Sepsis Qualifiers: Sepsis type: sepsis due to unspecified organism Qualified Code(s): A41.9 - Sepsis, unspecified organism (6) CAD (coronary artery disease) Qualifiers: Coronary Disease-Associated Artery/Lesion type: bypass graft [place] vs. transplanted heart: [place] heart Associated angina: without angina Qualified Code(s): I25.810 - Atherosclerosis of coronary artery bypass graft(s) without angina pectoris (7) Hypertension Qualifiers: Hypertension type: essential hypertension Qualified Code(s): I10 - Essential (primary) hypertension <Edy Rock - Last Filed: 08/14/18 13:40> (1) Sepsis Qualifiers: Sepsis type: sepsis due to unspecified organism Qualified Code(s): A41.9 - Sepsis, unspecified organism (3) CAD (coronary artery disease) Qualifiers: Coronary Disease-Associated Artery/Lesion type: bypass graft [place] vs. transplanted heart: [place] heart Associated angina: without angina Qualified Code(s): I25.810 - Atherosclerosis of coronary artery bypass graft(s) without angina pectoris (6) Hypertension Qualifiers: Hypertension type: essential hypertension Qualified Code(s): I10 - Essential (primary) hypertension
[2018-08-14] MEDS: 0.9 % Sodium Chloride w KCl 20 MEQ/1,000 ML MLS IVC SCH (11:31)
[2018-08-14] MEDS: cefTRIAXone 1,000 MG in Water for inj. (sterile) 20 ML 10 ML IVP SCH (12:32)
[2018-08-14] MEDS: Lactobacillus 1 EACH CAP.SPRINK PO SCH ×2 (14:35→21:22)
[2018-08-14] MEDS: Vancomycin Oral Soln 125 MG/2.5 ML UDC PO SCH ×3 (14:36→21:23)
[2018-08-14] MEDS: *HR* Heparin 5,000 UNIT/ML VIAL SQ SCH (17:41)
--- NOTE | 2018-08-14 21:12 | Electrocardiograph Report ---
[place] [address] Test Date: 2018-08-14 Pat Name: Santhosh Valderrama Department: 113 Room: 3B32 Gender: M Bilingual Operator: GWENDOLYN : 1935 Requested By: Edy Rock Order Number: [id number] Reading MD: Lisseth Rocha Measurements Intervals [place] Rate: 83 P: 31 W[place]: 225 QRS: -15 QRSD: 146 T: 79 QT: 404 QTc: 444 Interpretive Statements SINUS RHYTHM WITH FIRST DEGREE AV BLOCK LEFT BUNDLE BRANCH BLOCK Electronically Signed On 08-14-2018 21:10:45 EST by Lisseth Rocha
--- NOTE | 2018-08-14 21:33 | Electrocardiograph Report ---
[address] [place], [place] [address] Test Date: 2018-08-13 Pat Name: Santhosh Valderrama Department: EXAM4 Room: 3B Gender: M Quartz Mounter: : 1935 Requested By: Jona Suggs Order Number: [id number] Reading MD: Lisseth Rocha Measurements Intervals [place] Rate: 104 P: [place]: QRS: 24 QRSD: 144 T: 130 QT: 379 QTc: 499 Interpretive Statements Sinus rhythm with premature atrial contractions Left bundle branch block Electronically Signed On 08-14-2018 21:31:34 EST by Lisseth Rocha
[2018-08-15] MEDS: 0.9 % Sodium Chloride w KCl 20 MEQ/1,000 ML MLS IVC SCH ×2 (01:57→16:09)
[2018-08-15 04:27] LABS: Hemoglobin 10.6 g/dL (12.9-16.9); Mean Corpuscular HGB Conc 33.1 g/dL (31.6-35.5); Mean Corpuscular Volume 87.4 fL (83.0-100.0); Mean Platelet Volume 10.6 fL (9.4-12.4); Platelet Count 148 K/mcL (140-400); Red Blood Count 3.66 M/mcL (4.19-5.50); Red Cell Distribution Width 12.6 % (11.5-14.5)
[2018-08-15 04:44] LABS: BUN/Creatinine Ratio 15 (6-26); Blood Urea Nitrogen 12 mg/dL (8-23); Calcium 7.9 mg/dL (8.6-10.3); Carbon Dioxide 18 mEq/L (23-29); Chloride 112 mEq/L (98-107); Glucose 119 mg/dL (70-105); Magnesium 1.7 mg/dL (1.6-2.6); Osmolality,Calculated 283 (280-300); Potassium 3.8 mEq/L (3.5-5.1); Sodium 136 mEq/L (136-145); eGFR For Non-African Americans > 60 (> 60)
[2018-08-15] MEDS: *HR* Heparin 5,000 UNIT/ML VIAL SQ SCH ×2 (06:02→16:09)
[2018-08-15] MEDS: cefTRIAXone 1,000 MG in Water for inj. (sterile) 20 ML 10 ML IVP SCH (10:10)
[2018-08-15] MEDS: Primidone 50 MG TABLET PO SCH ×2 (10:10→21:36)
[2018-08-15] MEDS: Lactobacillus 1 EACH CAP.SPRINK PO SCH ×2 (10:10→21:36)
[2018-08-15] MEDS: Vancomycin Oral Soln 125 MG/2.5 ML UDC PO SCH ×4 (10:11→21:36)
--- NOTE | 2018-08-15 13:06 | Internal Med Progress Note ---
Hospitalist Progress Note - Encounter Date of Encounter: 08/15/18 Time of Encounter: 13:04 - Subjective Interval History: Ms. Valderrama is a 82 y/o M with known PMH of HTN, HLD, CAD s/p CABG, DM2 and BPH pt presented to ER with non bloody diarrhea and lower abdominal pain. His CT of Abd showed diffuse [place]incoln colitis. He did have elevated trop, peaked @ 0.21. He denied any CP. Pt stated he still has diarrhea. No BRBPR noticed. Still has abdominal pain. PO intake better today. - Exam Vitals: Temp Pulse Resp BP Pulse Ox 97.7 F 93 14 106/64 98 08/15/18 12:30 08/15/18 12:30 08/15/18 12:30 08/15/18 12:30 08/15/18 12:30 Exam: Gen: Alert, awake, Oriented to time,place and person Chest: Diminished breath sounds B/L, No wheezing, No crackles, No rales Heart: S1S2+ RRR, 2/6 murmurs Abd: Soft, Mild lower abd discomfort, BS +, No organomegaly Ext: No edema, pulses are palpable, No calf tenderness Neuro : Benign findings Skin: No rash. - Assessment and Plan (1) Sepsis Current Visit: Yes Status: Acute Assessment and Plan: Improving Due to C. Diff Colitis and acute UTI Cont PO Vancomycin Cont supportive and symptomatic care. (2) C. difficile colitis Current Visit: Yes Status: Acute Assessment and Plan: Positive c-diff. Patient was on antibiotics a couple of weeks ago Continue oral vanco avoid PPI on Lactobacillus (3) UTI (urinary tract infection) Current Visit: Yes Status: Acute Assessment and Plan: Urine Cx - G-ve rods cont Rocephin (4) Elevated troponin Current Visit: Yes Status: Acute Assessment and Plan: Troponin= 0.07, 0.13, 0.21 Due to demand ischemia Waiting for Echo Card is on board -appreciate their recommendations (5) CAD (coronary artery disease) Current Visit: No Status: Chronic Assessment and Plan: Hx of CABG. Continue BB, BEAU, and statin. (6) BPH with obstruction/lower urinary tract symptoms Current Visit: Yes Status: Acute Assessment and Plan: Continue crespo. Will f/u outpatient with urology. (7) Hypertension Current Visit: Yes Status: Acute Assessment and Plan: well controlled. currently on home medications. Continue metoprolol 50mg BID, Lisinopril 40mg daily. (8) Hypokalemia Current Visit: Yes Status: Acute Assessment and Plan: Improved (9) Hypomagnesemia Current Visit: Yes Status: Acute Assessment and Plan: Improved - Time Spent with Patient Total time spent is greater than 50% in coordination of care (as documented) at patient's floor/unit and/or counseling patient: Internal Medicine: Result - Labs CBC & Chem 7: 08/15/18 04:06 08/15/18 04:06 Labs: Short CBC 08/15/18 Range/Units 04:06 WBC 10.7 (4.3-11.1) K/mcL Hgb 10.6 L (12.9-16.9) g/dL Hct 32.0 L (37.5-50.1) % Plt Count 148 (140-400) K/mcL BMP 08/15/18 04:06 Sodium 136 Potassium 3.8 Chloride 112 H Carbon Dioxide 18 L BUN 12 Creatinine 0.81 Glucose 119 H Calcium 7.9 L - ABG Interpretation ABG results: PT/INR, D-dimer PT 15.2 Seconds (9.4-12.1) H 08/13/18 10:55 - Impressions Impressions Abdomen/Pelvis CT 08/13/18 11:57 IMPRESSION: 1. Diffuse circumferential wall thickening of the entirety of the colon, consistent with a diffuse infectious or inflammatory pancolitis. There is no evidence of pneumatosis, perforation, or free air. 2. Bilateral nonobstructing nephrolithiasis, without evidence of a ureteral calculus or hydronephrosis. There is a layering calcification within the urinary bladder. 3. Chronic pancreatitis. 4. Cholelithiasis. 5. Bilateral renal cysts. 6. Mild gastroesophageal reflux. 7. Mild prostatomegaly. 8. Mild to moderate sized left inguinal hernia. D/ / 08/13/2018 15:24:20 Marcell Hutcihns MD / sierra Interpreting Provider: Marcell Hutchins MD Echocardiogram 08/14/18 14:46 Impressions: LVEF 55-60%. Normal LV chamber size, wall thickness and function. Atypical septal motion consistent with post-operative status, bundle branch block. Mild left ventricular diastolic dysfunction. Grossly normal right ventricular structure and function. 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 Leaflets not well visualized. 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 Mean gradient 22 mmHg. Correlate with size and type of valve. No evidence of pulmonary hypertension. Left Ventricular Wall Motion: Rest Echo Findings All wall segments showed normal motion. Findings: Study Quality * Technically sub-optimal due to poor echocardiographic windows. ECG Findings * Normal sinus rhythm with a bundle branch block. Left Ventricle * LVEF 55-60%. * Normal LV chamber size, wall thickness and function. * Atypical septal motion consistent with post-operative status, bundle branch block. * Mild left ventricular diastolic dysfunction. Right Ventricle * Grossly normal right ventricular structure and function. Left Atrium * Mild to moderately dilated left atrium. Right Atrium * Normal right atrial size. 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 Leaflets not well visualized. 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 Mean gradient 22 mmHg. Correlate with size and type of valve. * No aortic regurgitation. Mitral Valve * Moderate mitral annular calcification. * Mildly calcified mitral valve leaflets. * Trace mitral regurgitation. * No mitral stenosis. Tricuspid Valve * Normal tricuspid valve structure and function. * Trace tricuspid regurgitation. * No evidence of pulmonary hypertension. Pulmonic Valve * Normal pulmonic valve structure and function. * Trace pulmonic regurgitation. Aorta * Normally sized aortic root. Pericardium * The pericardium appears normal. IVC * The IVC is not dilated. * Response to Valsalva not well visualized. Pulmonary Artery * Pulmonary artery not well visualized. Consult Discharge Plan - Plan Referrals: Jael Hobson, [employer]DER [Primary Care Provider] - (1) Sepsis Qualifiers: Sepsis type: sepsis due to unspecified organism Qualified Code(s): A41.9 - Sepsis, unspecified organism (5) CAD (coronary artery disease) Qualifiers: Coronary Disease-Associated Artery/Lesion type: bypass graft [place] vs. tr ansplanted heart: [place] heart Associated angina: without angina Qualified Code(s): I25.810 - Atherosclerosis of coronary artery bypass graft(s) without angina pectoris (7) Hypertension Qualifiers: Hypertension type: essential hypertension Qualified Code(s): I10 - Essential (primary) hypertension
[2018-08-16 04:19] LABS: BUN/Creatinine Ratio 16 (6-26); Blood Urea Nitrogen 11 mg/dL (8-23); Calcium 7.9 mg/dL (8.6-10.3); Carbon Dioxide 20 mEq/L (23-29); Chloride 109 mEq/L (98-107); Glucose 124 mg/dL (70-105); Magnesium 1.5 mg/dL (1.6-2.6); Osmolality,Calculated 277 (280-300); Potassium 3.8 mEq/L (3.5-5.1); Sodium 133 mEq/L (136-145); eGFR For Non-African Americans > 60 (> 60)
[2018-08-16] MEDS: *HR* Heparin 5,000 UNIT/ML VIAL SQ SCH ×2 (05:30→17:10)
[2018-08-16] MEDS: 0.9 % Sodium Chloride w KCl 20 MEQ/1,000 ML MLS IVC SCH (05:30)
[2018-08-16] MEDS: Primidone 50 MG TABLET PO SCH ×2 (09:22→21:50)
[2018-08-16] MEDS: Lactobacillus 1 EACH CAP.SPRINK PO SCH ×2 (09:22→21:50)
[2018-08-16] MEDS: cefTRIAXone 1,000 MG in Water for inj. (sterile) 20 ML 10 ML IVP SCH (09:23)
[2018-08-16] MEDS: Vancomycin Oral Soln 125 MG/2.5 ML UDC PO SCH ×4 (09:29→21:51)
--- NOTE | 2018-08-16 13:47 | Internal Med Progress Note ---
Hospitalist Progress Note - Encounter Date of Encounter: 08/16/18 Time of Encounter: 13:45 - Subjective Interval History: Mr. Valderrama is a 82 y/o M with known PMH of HTN, HLD, CAD s/p CABG, DM2 and BPH pt presented to ER with non bloody diarrhea and lower abdominal pain. His CT of Abd showed diffuse [place] colitis. He did have elevated trop, peaked @ 0.21. He denied any CP. Pt stated he still has diarrhea, however over all feels better today. Having more formed stools now. No BRBPR noticed. PO intake better today. - Exam Vitals: Temp Pulse Resp BP Pulse Ox 97.5 F L 59 16 125/66 99 08/16/18 11:42 08/16/18 11:42 08/16/18 11:42 08/16/18 11:42 08/16/18 11:42 Exam: Gen: Alert, awake, Oriented to time,place and person Chest: Diminished breath sounds B/L, No wheezing, No crackles, No rales Heart: S1S2+ RRR, 2/6 murmurs Abd: Soft, Mild lower abd discomfort, BS +, No organomegaly Ext: No edema, pulses are palpable, No calf tenderness Neuro : Benign findings Skin: No rash. - Assessment and Plan (1) Sepsis Current Visit: Yes Status: Acute Assessment and Plan: Improving Due to C. Diff Colitis and acute UTI Cont PO Vancomycin Cont supportive and symptomatic care. (2) C. difficile colitis Current Visit: Yes Status: Acute Assessment and Plan: Positive c-diff. Patient was on antibiotics a couple of weeks ago Improving now Continue oral vanco avoid PPI on Lactobacillus (3) UTI (urinary tract infection) Current Visit: Yes Status: Acute Assessment and Plan: Urine Cx - growing Klebsiella cont Rocephin for now # 3/5 (4) Elevated troponin Current Visit: Yes Status: Acute Assessment and Plan: Troponin= 0.07, 0.13, 0.21 Due to demand ischemia Echo reviewed - preserved LVEF at 55 to 60%, atypical septal motion consistent with the postoperative status and bundle branch block, mildly left ventricular diastolic dysfunction Card is on board -appreciate their recommendations (5) CAD (coronary artery disease) Current Visit: No Status: Chronic Assessment and Plan: Hx of CABG. Continue BB, BEAU, and statin (6) BPH with obstruction/lower urinary tract symptoms Current Visit: Yes Status: Acute Assessment and Plan: Continue crespo. Will f/u outpatient with urology. (7) Hypertension Current Visit: Yes Status: Acute Assessment and Plan: well controlled. currently on home medications. Continue metoprolol 50mg BID, Lisinopril 40mg daily. (8) Hypokalemia Current Visit: Yes Status: Acute Assessment and Plan: Improved (9) Hypomagnesemia Current Visit: Yes Status: Acute Assessment and Plan: Still @ 1.5 will replace (10) Physical deconditioning Current Visit: Yes Status: Acute Assessment and Plan: PT / OT eval done Recommend ECF placement CM / SW working on it - Time Spent with Patient Total time spent is greater than 50% in coordination of care (as documented) at patient's floor/unit and/or counseling patient: Internal Medicine: Result - Labs CBC & Chem 7: 08/15/18 04:06 08/16/18 03:10 Labs: BMP 08/16/18 03:10 Sodium 133 L Potassium 3.8 Chloride 109 H Carbon Dioxide 20 L BUN 11 Creatinine 0.68 L Glucose 124 H Calcium 7.9 L - ABG Interpretation ABG results: PT/INR, D-dimer PT 15.2 Seconds (9.4-12.1) H 08/13/18 10:55 Consult Discharge Plan - Plan Referrals: Jael Hobson, [employer] [Primary Care Provider] - 08/24/18 8:20 am (1) Sepsis Qualifiers: Sepsis type: sepsis due to unspecified organism Qualified Code(s): A41.9 - Sepsis, unspecified organism (5) CAD (coronary artery disease) Qualifiers: Coronary Disease-Associated Artery/Lesion type: bypass graft [place] vs. t ransplanted heart: [place] heart Associated angina: without angina Qualified Code(s): I25.810 - Atherosclerosis of coronary artery bypass graft(s) without angina pectoris (7) Hypertension Qualifiers: Hypertension type: essential hypertension Qualified Code(s): I10 - Essential (primary) hypertension
[2018-08-17 04:45] LABS: BUN/Creatinine Ratio 13 (6-26); Blood Urea Nitrogen 9 mg/dL (8-23); Carbon Dioxide 19 mEq/L (23-29); Chloride 111 mEq/L (98-107); Glucose 94 mg/dL (70-105); Magnesium 1.6 mg/dL (1.6-2.6); Osmolality,Calculated 280 (280-300); Potassium 4.1 mEq/L (3.5-5.1); Sodium 136 mEq/L (136-145); eGFR For Non-African Americans > 60 (> 60)
[2018-08-17] MEDS: *HR* Heparin 5,000 UNIT/ML VIAL SQ SCH ×2 (05:22→17:18)
[2018-08-17] MEDS ORDERED: cefTRIAXone 1,000 MG in Water for inj. (sterile) 20 ML 10 ML IVP SCH (09:00)
[2018-08-17] MEDS: Vancomycin Oral Soln 125 MG/2.5 ML UDC PO SCH ×4 (09:06→22:02)
[2018-08-17] MEDS: Primidone 50 MG TABLET PO SCH ×2 (09:08→22:02)
[2018-08-17] MEDS: Lactobacillus 1 EACH CAP.SPRINK PO SCH ×2 (09:08→22:02)
--- NOTE | 2018-08-17 09:41 | Internal Med Progress Note ---
Hospitalist Progress Note - Encounter Date of Encounter: 08/17/18 Time of Encounter: 09:37 - Subjective Interval History: Mr. Valderrama is a 82 y/o M with known PMH of HTN, HLD, CAD s/p CABG, DM2 and BPH pt presented to ER with non bloody diarrhea and lower abdominal pain. His CT of Abd showed diffuse [place] colitis. He did have elevated trop, peaked @ 0.21. He denied any CP. Pt stated he still has diarrhea, however over all feels better today. Having more formed stools now. No BRBPR noticed. PO intake better today. No events over night. - Exam Vitals: Temp Pulse Resp BP Pulse Ox 98.5 F 66 16 111/66 93 08/17/18 07:23 08/17/18 07:23 08/17/18 07:23 08/17/18 07:23 08/17/18 07:23 Exam: Gen: Alert, awake, Oriented to time,place and person Chest: Diminished breath sounds B/L, No wheezing, No crackles, No rales Heart: S1S2+ RRR, 2/6 murmurs Abd: Soft, NT, BS +, No organomegaly Ext: No edema, pulses are palpable, No calf tenderness Neuro : Benign findings Skin: No rash. - Assessment and Plan (1) Sepsis Current Visit: Yes Status: Acute Assessment and Plan: Improved Due to C. Diff Colitis and acute UTI Cont PO Vancomycin Cont supportive and symptomatic care. (2) C. difficile colitis Current Visit: Yes Status: Acute Assessment and Plan: Positive c-diff. Patient was on antibiotics a couple of weeks ago Improving now Continue oral vanco # 4/10 avoid PPI on Lactobacillus (3) UTI (urinary tract infection) Current Visit: Yes Status: Acute Assessment and Plan: Urine Cx - growing Klebsiella cont Rocephin for now # 4/5 (4) Elevated troponin Current Visit: Yes Status: Acute Assessment and Plan: Troponin= 0.07, 0.13, 0.21 Due to demand ischemia Echo reviewed - preserved LVEF at 55 to 60%, atypical septal motion consistent with the postoperative status and bundle branch block, mildly left ventricular diastolic dysfunction Card is on board -appreciate their recommendations (5) CAD (coronary artery disease) Current Visit: No Status: Chronic Assessment and Plan: Hx of CABG. Continue BB, BEAU, and statin (6) BPH with obstruction/lower urinary tract symptoms Current Visit: Yes Status: Acute Assessment and Plan: Continue crespo. Will f/u outpatient with urology. (7) Hypertension Current Visit: Yes Status: Acute Assessment and Plan: well controlled. currently on home medications. Continue metoprolol 50mg BID, Lisinopril 40mg daily. (8) Hypokalemia Current Visit: Yes Status: Acute Assessment and Plan: Improved (9) Hypomagnesemia Current Visit: Yes Status: Acute Assessment and Plan: @ 1.6 will give 1gm of Mg So4 today (10) Physical deconditioning Current Visit: Yes Status: Acute Assessment and Plan: PT / OT eval done Recommend ECF placement CM / SW working on it - Waiting on Prior auth / Pre cert - Time Spent with Patient Total time spent is greater than 50% in coordination of care (as documented) at patient's floor/unit and/or counseling patient: Internal Medicine: Result - Labs CBC & Chem 7: 08/15/18 04:06 08/17/18 03:23 Labs: BMP 08/17/18 03:23 Sodium 136 Potassium 4.1 Chloride 111 H Carbon Dioxide 19 L BUN 9 Creatinine 0.72 Glucose 94 Calcium 8.0 L - ABG Interpretation ABG results: PT/INR, D-dimer PT 15.2 Seconds (9.4-12.1) H 08/13/18 10:55 Consult Discharge Plan - Plan Referrals: Jael Hobson, [employer] OPERATOR [Primary Care Provider] - 08/24/18 8:20 am (1) Sepsis Qualifiers: Sepsis type: sepsis due to unspecified organism Qualified Code(s): A41.9 - Sepsis, unspecified organism (5) CAD (coronary artery disease) Qualifiers: Coronary Disease-Associated Artery/Lesion type: bypass graft [place] vs. transplanted heart: [place] heart Associated angina: without angina Qualified Code(s): I25.810 - Atherosclerosis of coronary artery bypass graft(s) without angina pectoris (7) Hypertension Qualifiers: Hypertension type: essential hypertension Qualified Code(s): I10 - Essential (primary) hypertension
[2018-08-17] MEDS ORDERED: Ondansetron 4 MG/2 ML VIAL IVP PRN (21:50)
[2018-08-18] MEDS: *HR* Heparin 5,000 UNIT/ML VIAL SQ SCH ×2 (05:10→17:19)
[2018-08-18] MEDS: Lactobacillus 1 EACH CAP.SPRINK PO SCH ×2 (10:49→20:57)
[2018-08-18] MEDS: Primidone 50 MG TABLET PO SCH ×2 (10:49→20:57)
[2018-08-18] MEDS: Magnesium Oxide 400 MG TABLET PO SCH ×2 (10:49→20:57)
[2018-08-18] MEDS: Lisinopril 20 MG TABLET PO SCH (10:49)
[2018-08-18] MEDS: cephALEXin 500 MG CAPSULE PO SCH ×4 (10:49→20:56)
[2018-08-18] MEDS: Vancomycin Oral Soln 125 MG/2.5 ML UDC PO SCH ×4 (11:25→20:57)
--- NOTE | 2018-08-18 11:25 | Internal Med Progress Note ---
Hospitalist Progress Note - Encounter Date of Encounter: 08/18/18 Time of Encounter: 11:23 - Subjective Interval History: Pt sitting at beside, eating breakfast. Reported no diarrhea since yesterday. No fever, chills, or night sweats. No c/o of urinary symptoms. - Exam Vitals: Temp Pulse Resp BP Pulse Ox 98.7 F 76 16 98/57 93 08/18/18 07:08 08/18/18 07:08 08/18/18 07:08 08/18/18 07:08 08/18/18 07:08 Exam: Gen: Alert, awake, Oriented to time,place and person Chest: Diminished breath sounds B/L, No wheezing, No crackles, No rales Heart: S1S2+ RRR, 2/6 murmurs Abd: Soft, NT, BS +, No organomegaly Ext: No edema, pulses are palpable, No calf tenderness Neuro : Benign findings Skin: No rash. - Assessment and Plan (1) Sepsis Current Visit: Yes Status: Resolved (2) UTI (urinary tract infection) Current Visit: Yes Status: Acute Assessment and Plan: Urine Cx - growing Klebsiella cont Rocephin for now # 4/5 3 Had 5 doses of Rocephin. IV abx changed or oralKeflex according to sensitivity results. (3) CAD (coronary artery disease) Current Visit: No Status: Chronic Assessment and Plan: Hx of CABG. Continue BB, BEAU, and statin (4) BPH with obstruction/lower urinary tract symptoms Current Visit: Yes Status: Acute Assessment and Plan: Continue crespo. Will f/u outpatient with urology. (5) C. difficile colitis Current Visit: Yes Status: Acute Assessment and Plan: Positive c-diff. Patient was on antibiotics a couple of weeks ago Improving now Continue oral vanco # 5/10 avoid PPI on Lactobacillus (6) Hypertension Current Visit: Yes Status: Acute Assessment and Plan: well controlled. currently on home medications. Continue metoprolol 50mg BID, Lisinopril 40mg daily. (7) Elevated troponin Current Visit: Yes Status: Acute Assessment and Plan: Troponin= 0.07, 0.13, 0.21 Due to demand ischemia Echo reviewed - preserved LVEF at 55 to 60%, atypical septal motion consistent with the postoperative status and bundle branch block, mildly left ventricular diastolic dysfunction Card is on board -appreciate their recommendations (8) Hypokalemia Current Visit: Yes Status: Resolved (9) Hypomagnesemia Current Visit: Yes Status: Resolved (10) Physical deconditioning Current Visit: Yes Status: Acute Assessment and Plan: PT / OT eval done Recommend ECF placement CM / SW working on it - Waiting on Prior auth / Pre cert - Time Spent with Patient Total time spent is greater than 50% in coordination of care (as documented) at patient's floor/unit and/or counseling patient: Greater than 35 minutes Plan of Care Discussed with: patient Internal Medicine: Result - Labs CBC & Chem 7: 08/15/18 04:06 08/17/18 03:23 - ABG Interpretation ABG results: PT/INR, D-dimer PT 15.2 Seconds (9.4-12.1) H 08/13/18 10:55 Consult Discharge Plan - Plan Referrals: Jael Hobson CNP [Primary Care Provider] - 08/24/18 8:20 am (1) Sepsis Qualifiers: Sepsis type: sepsis due to unspecified organism Qualified Code(s): A41.9 - Sepsis, unspecified organism (2) UTI (urinary tract infection) Qualifiers: Urinary tract infection type: acute cystitis Hematuria presence: without hematuria Qualified Code(s): N30.00 - Acute cystitis without hematuria (3) CAD (coronary artery disease) Qualifiers: Coronary Disease-Associated Artery/Lesion type: bypass graft [place] vs. transplanted heart: [place] heart Associated angina: without angina Qualified Code(s): I25.810 - Atherosclerosis of coronary artery bypass graft(s) without angina pectoris (6) Hypertension Qualifiers: Hypertension type: essential hypertension Qualified Code(s): I10 - Essential (primary) hypertension
[2018-08-18] MEDS: Acetaminophen 325 MG TABLET PO PRN (21:22)
[2018-08-18 23:47] LABS: Adenovirus Not Detected (Not Detect); Bordetella Pertussis Not Detected (Not Detect); Chlamydophila pneumoniae Not Detected (Not Detect); Coronavirus 229E Not Detected (Not Detect); Coronavirus HKU1 Not Detected (Not Detect); Coronavirus NL63 Not Detected (Not Detect); Coronavirus OC43 Not Detected (Not Detect); Human Metapneumovirus Not Detected (Not Detect); Human Rhinovirus/Enterovirus Not Detected (Not Detect); Influenza A Subtype 2009 H1 Not Detected (Not Detect); Influenza A Untypeable Not Detected (Not Detect); Influenza B Not Detected (Not Detect); Mycoplasma pneumoniae Not Detected (Not Detect); Parainfluenza Virus 1 Not Detected (Not Detect); Parainfluenza Virus 2 Not Detected (Not Detect); Parainfluenza Virus 3 Not Detected (Not Detect); Parainfluenza Virus 4 Not Detected (Not Detect); Respiratory Syncytial Virus Not Detected (Not Detect)
--- NOTE | 2018-08-19 00:41 | Event Note ---
Date of Encounter: 08/19/18 Time of Encounter: 00:40 Notified by nurse of patient developing low grade fever and cough today. Respiratory panel ordered, positive for flu. Contact precautions and tamiflu ordered.
[2018-08-19 03:47] LABS: Basophils # 0.1 K/mcL (0.0-0.2); Basophils % 0.7 %; Eosinophils % 0.3 %; Hematocrit 33.8 % (37.5-50.1); Hemoglobin 11.1 g/dL (12.9-16.9); Immature Granulocytes % 5.5 % (0-4); Lymphocytes # 0.9 K/mcL (0.6-4.6); Mean Corpuscular HGB Conc 32.8 g/dL (31.6-35.5); Mean Corpuscular Hemoglobin 28.7 pg (28.0-33.3); Mean Corpuscular Volume 87.3 fL (83.0-100.0); Mean Platelet Volume 11.2 fL (9.4-12.4); Monocytes # 0.9 K/mcL (0.0-1.3); Monocytes % 12.7 %; Platelet Count 147 K/mcL (140-400); Red Blood Count 3.87 M/mcL (4.19-5.50); Segmented Neutrophils % 68.8 %
[2018-08-19 03:59] LABS: BUN/Creatinine Ratio 14 (6-26); Blood Urea Nitrogen 11 mg/dL (8-23); Calcium 7.9 mg/dL (8.6-10.3); Carbon Dioxide 20 mEq/L (23-29); Chloride 102 mEq/L (98-107); Glucose 94 mg/dL (70-105); Magnesium 1.5 mg/dL (1.6-2.6); Osmolality,Calculated 269 (280-300); Potassium 3.7 mEq/L (3.5-5.1); Sodium 130 mEq/L (136-145); eGFR For Non-African Americans > 60 (> 60)
[2018-08-19 04:55] LABS: Platelet Estimate Normal (Normal); Reactive Lymphocytes Present (Not Present); Toxic Granulation Present (Not Present)
[2018-08-19] MEDS: *HR* Heparin 5,000 UNIT/ML VIAL SQ SCH ×2 (05:30→17:01)
[2018-08-19] MEDS ORDERED: Chloraseptic Spray 177 ML BOTTLE MM PRN (05:35)
[2018-08-19] MEDS: Acetaminophen 325 MG TABLET PO PRN ×2 (09:59→16:58)
[2018-08-19] MEDS: Magnesium Oxide 400 MG TABLET PO SCH ×2 (10:00→20:48)
[2018-08-19] MEDS: Primidone 50 MG TABLET PO SCH ×2 (10:00→20:48)
[2018-08-19] MEDS: cephALEXin 500 MG CAPSULE PO SCH ×4 (10:00→20:48)
[2018-08-19] MEDS: Lisinopril 20 MG TABLET PO SCH (10:00)
[2018-08-19] MEDS: Lactobacillus 1 EACH CAP.SPRINK PO SCH ×2 (10:00→20:48)
[2018-08-19] MEDS: Vancomycin Oral Soln 125 MG/2.5 ML UDC PO SCH ×4 (10:02→20:49)
--- NOTE | 2018-08-19 10:28 | Internal Med Progress Note ---
Hospitalist Progress Note - Encounter Date of Encounter: 08/19/18 Time of Encounter: 10:26 - Subjective Interval History: One episode of low fever, slightly congested. positive for Flu, started on Tamiflu. No sob, chest pain,or palpitation. - Exam Vitals: Temp Pulse Resp BP Pulse Ox 99.3 F 70 16 126/70 94 08/19/18 07:24 08/19/18 07:24 08/19/18 07:24 08/19/18 07:24 08/19/18 07:24 Exam: Gen: Alert, awake, Oriented to time,place and person Chest: Diminished breath sounds B/L, No wheezing, No crackles, No rales Heart: S1S2+ RRR, 2/6 murmurs Abd: Soft, NT, BS +, No organomegaly Ext: No edema, pulses are palpable, No calf tenderness Neuro : Benign findings Skin: No rash. - Assessment and Plan (1) Sepsis Current Visit: Yes Status: Resolved (2) UTI (urinary tract infection) Current Visit: Yes Status: Acute Assessment and Plan: Urine Cx - growing Klebsiella cont Rocephin for now # 4/5 08/18-08/19 Had 5 doses of Rocephin. IV abx changed to oral Keflex according to sensitivity results. (3) CAD (coronary artery disease) Current Visit: No Status: Chronic Assessment and Plan: Hx of CABG. Continue BB, BEAU, and statin (4) BPH with obstruction/lower urinary tract symptoms Current Visit: Yes Status: Acute Assessment and Plan: Continue crespo. Will f/u outpatient with urology. (5) C. difficile colitis Current Visit: Yes Status: Acute Assessment and Plan: Positive c-diff. Patient was on antibiotics a couple of weeks ago Improving now Continue oral vanco # 5/10 avoid PPI on Lactobacillus (6) Hypertension Current Visit: Yes Status: Acute Assessment and Plan: well controlled. currently on home medications. Continue metoprolol 50mg BID, Lisinopril 40mg daily. (7) Elevated troponin Current Visit: Yes Status: Resolved (8) Hypokalemia Current Visit: Yes Status: Resolved (9) Hypomagnesemia Current Visit: Yes Status: Resolved (10) Physical deconditioning Current Visit: Yes Status: Acute Assessment and Plan: PT / OT eval done Recommend ECF placement CM / SW working on it - Waiting on Prior auth / Pre cert - Time Spent with Patient Total time spent is greater than 50% in coordination of care (as documented) at patient's floor/unit and/or counseling patient: Greater than 35 minutes Plan of Care Discussed with: patient Internal Medicine: Result - Labs CBC & Chem 7: 08/19/18 01:28 08/19/18 01:28 Labs: Short CBC 08/19/18 Range/Units 01:28 WBC 7.3 (4.3-11.1) K/mcL Hgb 11.1 L (12.9-16.9) g/dL Hct 33.8 L (37.5-50.1) % Plt Count 147 (140-400) K/mcL Neutrophils # 5.0 (1.6-8.9) K/mcL BMP 08/19/18 01:28 Sodium 130 L Potassium 3.7 Chloride 102 Carbon Dioxide 20 L BUN 11 Creatinine 0.77 Glucose 94 Calcium 7.9 L - ABG Interpretation ABG results: PT/INR, D-dimer PT 15.2 Seconds (9.4-12.1) H 08/13/18 10:55 Consult Discharge Plan - Plan Referrals: Jael Hobson, [employer] D[employer]ER [employer]PER [Primary Care Provider] - 08/24/18 8:20 am _ (1) Sepsis Qualifiers: Sepsis type: sepsis due to unspecified organism Qualified Code(s): A41.9 - Sepsis, unspecified organism (2) UTI (urinary tract infection) Qualifiers: Urinary tract infection type: acute cystitis Hematuria presence: without hematuria Qualified Code(s): N30.00 - Acute cystitis without hematuria (3) CAD (coronary artery disease) Qualifiers: Coronary Disease-Associated Artery/Lesion type: bypass graft [place] vs. transplanted heart: [place] heart Associated angina: without angina Qualified Code(s): I25.810 - Atherosclerosis of coronary artery bypass graft(s) without angina pectoris (6) Hypertension Qualifiers: Hypertension type: essential hypertension Qualified Code(s): I10 - Essential (primary) hypertension
[2018-08-20] MEDS: *HR* Heparin 5,000 UNIT/ML VIAL SQ SCH ×2 (04:36→18:54)
[2018-08-20] MEDS: Melatonin 3 MG TABLET PO PRN ×2 (04:36→21:20)
[2018-08-20 06:21] LABS: BUN/Creatinine Ratio 15 (6-26); Blood Urea Nitrogen 11 mg/dL (8-23); Calcium 7.8 mg/dL (8.6-10.3); Carbon Dioxide 24 mEq/L (23-29); Chloride 104 mEq/L (98-107); Glucose 108 mg/dL (70-105); Osmolality,Calculated 274 (280-300); Potassium 3.9 mEq/L (3.5-5.1); Sodium 132 mEq/L (136-145); eGFR For Non-African Americans > 60 (> 60)
[2018-08-20] MEDS: Primidone 50 MG TABLET PO SCH ×2 (08:32→21:20)
[2018-08-20] MEDS: Lisinopril 20 MG TABLET PO SCH (08:32)
[2018-08-20] MEDS: cephALEXin 500 MG CAPSULE PO SCH ×4 (08:32→21:19)
[2018-08-20] MEDS: Lactobacillus 1 EACH CAP.SPRINK PO SCH ×2 (08:32→21:20)
[2018-08-20] MEDS: Magnesium Oxide 400 MG TABLET PO SCH ×2 (08:32→21:20)
[2018-08-20] MEDS: Vancomycin Oral Soln 125 MG/2.5 ML UDC PO SCH ×4 (08:33→21:24)
--- NOTE | 2018-08-20 16:58 | Internal Med Progress Note ---
Hospitalist Progress Note - Encounter Date of Encounter: 08/20/18 Time of Encounter: 16:56 - Subjective Interval History: Pt was seen and examined in the room. Reported form stool and had no diarrhea since Monday. No fever, chills, or night sweats. - Exam Vitals: Temp Pulse Resp BP Pulse Ox 98.5 F 62 16 100/57 91 08/20/18 11:58 08/20/18 11:58 08/20/18 11:58 08/20/18 11:58 08/20/18 11:58 Exam: Gen: Alert, awake, Oriented to time,place and person Chest: Diminished breath sounds B/L, No wheezing, No crackles, No rales Heart: S1S2+ RRR, 2/6 murmurs Abd: Soft, NT, BS +, No organomegaly Ext: No edema, pulses are palpable, No calf tenderness Neuro : Benign findings Skin: No rash. - Assessment and Plan (1) Sepsis Current Visit: Yes Status: Resolved (2) UTI (urinary tract infection) Current Visit: Yes Status: Acute Assessment and Plan: Urine Cx - growing Klebsiella cont Rocephin for now # 4/5 08/18-08/19 Had 5 doses of Rocephin. IV abx changed to oral Keflex according to sensitivity results. (3) CAD (coronary artery disease) Current Visit: No Status: Chronic Assessment and Plan: Hx of CABG. Continue BB, BEAU, and statin (4) BPH with obstruction/lower urinary tract symptoms Current Visit: Yes Status: Acute (5) C. difficile colitis Current Visit: Yes Status: Acute Assessment and Plan: Positive c-diff. Patient was on antibiotics a couple of weeks ago Improving now Continue oral vanco # 5/10 avoid PPI on Lactobacillus (6) Hypertension Current Visit: Yes Status: Acute Assessment and Plan: well controlled. currently on home medications. Continue metoprolol 50mg BID, Lisinopril 40mg daily. (7) Elevated troponin Current Visit: Yes Status: Resolved (8) Hypokalemia Current Visit: Yes Status: Resolved (9) Hypomagnesemia Current Visit: Yes Status: Resolved (10) Physical deconditioning Current Visit: Yes Status: Acute Assessment and Plan: PT / OT eval done Recommend ECF placement CM / SW working on it - Waiting on Prior auth / Pre cert - Time Spent with Patient Total time spent is greater than 50% in coordination of care (as documented) at patient's floor/unit and/or counseling patient: Greater than 35 minutes Plan of Care Discussed with: patient Internal Medicine: Result - Labs CBC & Chem 7: 08/19/18 01:28 08/20/18 05:28 Labs: BMP 08/20/18 05:28 Sodium 132 L Potassium 3.9 Chloride 104 Carbon Dioxide 24 BUN 11 Creatinine 0.74 Glucose 108 H Calcium 7.8 L - ABG Interpretation ABG results: PT/INR, D-dimer PT 15.2 Seconds (9.4-12.1) H 08/13/18 10:55 Consult Discharge Plan - Plan Referrals: Jael Hobson CNP [Primary Care Provider] - 08/24/18 8:20 am (1) Sepsis Qualifiers: Sepsis type: sepsis due to unspecified organism Qualified Code(s): A41.9 - Sepsis, unspecified organism (2) UTI (urinary tract infection) Qualifiers: Urinary tract infection type: acute cystitis Hematuria presence: without hematuria Qualified Code(s): N30.00 - Acute cystitis without hematuria (3) CAD (coronary artery disease) Qualifiers: Coronary Disease-Associated Artery/Lesion type: bypass graft [place] vs. transplanted heart: [place] heart Associated angina: without angina Qualified Code(s): I25.810 - Atherosclerosis of coronary artery bypass graft(s) without angina pectoris (6) Hypertension Qualifiers: Hypertension type: essential hypertension Qualified Code(s): I10 - Essential (primary) hypertension
[2018-08-21 04:49] LABS: BUN/Creatinine Ratio 13 (6-26); Blood Urea Nitrogen 9 mg/dL (8-23); Carbon Dioxide 23 mEq/L (23-29); Chloride 102 mEq/L (98-107); Glucose 91 mg/dL (70-105); Osmolality,Calculated 274 (280-300); Sodium 133 mEq/L (136-145); eGFR For Non-African Americans > 60 (> 60)
[2018-08-21] MEDS: *HR* Heparin 5,000 UNIT/ML VIAL SQ SCH (05:07)
[2018-08-21] MEDS: Lactobacillus 1 EACH CAP.SPRINK PO SCH (09:30)
[2018-08-21] MEDS: cephALEXin 500 MG CAPSULE PO SCH (09:30)
[2018-08-21] MEDS: Magnesium Oxide 400 MG TABLET PO SCH (09:30)
[2018-08-21] MEDS: Primidone 50 MG TABLET PO SCH (09:30)
[2018-08-21] MEDS: Vancomycin Oral Soln 125 MG/2.5 ML UDC PO SCH ×2 (09:31→15:06)
--- NOTE | 2018-08-21 10:13 | Internal Med Progress Note ---
Hospitalist Progress Note - Encounter Date of Encounter: 08/21/18 Time of Encounter: 10:10 - Subjective Interval History: Pt resting, reported soft but not liquid stool overnight. No fever, chills, or night sweats. - Exam Vitals: Temp Pulse Resp BP Pulse Ox 98.6 F 61 16 95/53 92 08/21/18 07:19 08/21/18 07:19 08/21/18 07:19 08/21/18 07:19 08/21/18 07:19 Exam: Gen: Alert, awake, Oriented to time,place and person Chest: Diminished breath sounds B/L, No wheezing, No crackles, No rales Heart: S1S2+ RRR, 2/6 murmurs Abd: Soft, NT, BS +, No organomegaly Ext: No edema, pulses are palpable, No calf tenderness Neuro : Benign findings Skin: No rash. - Assessment and Plan (1) Sepsis Current Visit: Yes Status: Resolved (2) UTI (urinary tract infection) Current Visit: Yes Status: Acute Assessment and Plan: Urine Cx - growing Klebsiella cont Rocephin for now # 4/5 08/18-08/19 Had 5 doses of Rocephin. IV abx changed to oral Keflex according to sensitivity results. 08/21 completed 7 days of abx. oral abx dc'ed. (3) CAD (coronary artery disease) Current Visit: No Status: Chronic Assessment and Plan: Hx of CABG. Continue BB, BEAU, and statin (4) BPH with obstruction/lower urinary tract symptoms Current Visit: Yes Status: Acute Assessment and Plan: Continue crespo. Will f/u outpatient with urology. (5) C. difficile colitis Current Visit: Yes Status: Acute Assessment and Plan: Positive c-diff. Patient was on antibiotics a couple of weeks ago Improving now Continue oral vanco # 7/10, need complete 15 days of course. f/u with PCP after dose completed. avoid PPI on Lactobacillus (6) Hypertension Current Visit: Yes Status: Acute Assessment and Plan: well controlled. currently on home medications. Continue metoprolol 50mg BID, Lisinopril 40mg daily. (7) Elevated troponin Current Visit: Yes Status: Resolved (8) Hypokalemia Current Visit: Yes Status: Resolved (9) Hypomagnesemia Current Visit: Yes Status: Resolved (10) Physical deconditioning Current Visit: Yes Status: Acute Assessment and Plan: PT / OT eval done Recommend ECF placement CM / SW working on it - Waiting on Prior auth / Pre cert DVT Prophylaxis: Heparin subcutaneous - Time Spent with Patient Total time spent is greater than 50% in coordination of care (as documented) at patient's floor/unit and/or counseling patient: Greater than 35 minutes Plan of Care Discussed with: patient Internal Medicine: Result - Labs CBC & Chem 7: 08/19/18 01:28 08/21/18 03:52 Labs: BMP 08/21/18 03:52 Sodium 133 L Potassium 4.0 Chloride 102 Carbon Dioxide 23 BUN 9 Creatinine 0.72 Glucose 91 Calcium 8.0 L - ABG Interpretation ABG results: PT/INR, D-dimer PT 15.2 Seconds (9.4-12.1) H 08/13/18 10:55 Consult Discharge Plan - Plan Referrals: Jael Hobson, BING[employer] FLOATER [Primary Care Provider] - 08/24/18 8:20 am (1) Sepsis Qualifiers: Sepsis type: sepsis due to unspecified organism Qualified Code(s): A41.9 - Sepsis, unspecified organism (2) UTI (urinary tract infection) Qualifiers: Urinary tract infection type: acute cystitis Hematuria presence: without hematuria Qualified Code(s): N30.00 - Acute cystitis without hematuria (3) CAD (coronary artery disease) Qualifiers: Coronary Disease-Associated Artery/Lesion type: bypass graft [place] vs. transplanted heart: [place] heart Associated angina: without angina Qualified Code(s): I25.810 - Atherosclerosis of coronary artery bypass graft(s) without angina pectoris (6) Hypertension Qualifiers: Hypertension type: essential hypertension Qualified Code(s): I10 - Essential (primary) hypertension
--- NOTE | 2018-08-21 13:02 | Physician Discharge Referral ---
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 difficile colitis Priority: Primary Status: Acute (6) Hypertension Priority: Secondary Status: Acute (7) Elevated troponin Priority: Primary Status: Resolved (8) Hypokalemia Priority: Primary Status: Resolved (9) Hypomagnesemia Priority: Primary Status: Resolved (10) Physical deconditioning Priority: Primary Status: Acute Prognosis: Fair Aware of Diagnosis: Patient, Family Aware of Prognosis: Patient, Family - Transfer Medications Home Medications: Atorvastatin [Lipitor] 80 mg PO HS 04/02/17 [History] Lisinopril [Zestril] 40 mg PO DAILY 04/02/17 [History] Metoprolol [Lopressor] 50 mg PO BID 04/02/17 [History] Nitroglycerin [Nitrostat] 0.4 mg SL PER PKG DI 04/02/17 [History] Primidone [Mysoline] 50 mg PO BID 04/02/17 [History] glipiZIDE [Glipizide ER] 5 mg PO DAILY 04/02/17 [History] Ibuprofen [Motrin] 800 mg PO TID PRN 08/13/18 [History] Tamsulosin HCl [Flomax] 0.4 mg PO HS 08/13/18 [History] Allergies/Adverse Reactions: Allergy/AdvReac Type Severity Reaction Status Date / Time No Known Allergies Allergy Verified 08/09/18 14:59 - Respiratory Orders Smoking Cessation: Smoking cessation has been advised. For more information, call the [place] Tobacco Quit Line at 0-594-KIYS-NOW. - Advance Directives Code Status: Full Code - Rehabiliation Orders Rehab Potential: Fair Rehab Orders: Evaluation for Physical Therapy, Evaluation for Occupational Therapy - Treatments Skin tear care topically daily PRN per policy - Diet Orders Cardiac CERTIFICATION: I certify that the transfer of the above named patient to an Extended Care Facility is necessary for the continuing treatment of the diagnosis listed. The above information is true and accurate reflection of patient's current condition. Confidential - Redisclosure prohibited without a patient's written consent.
--- NOTE | 2018-08-21 13:09 | Discharge Summary ---
- NOTES TO OUTPATIENT PROVIDER Notes to Outpatient Provider: f/u with PCP within 2 weeks,. f/u with Urology within 2 weeks. Orders not resulted at time of discharge: Pending orders 08/22/18 04:00 BMP [Basic Metabolic Panel] AM 0400 Complete Blood Count w/o Diff [HEME] AM 0400 Date of Encounter: 08/21/18 Time of Encounter: 13:05 - Discharge Diagnosis (1) Sepsis Priority: Primary Status: Resolved Qualifiers: Sepsis type: sepsis due to unspecified organism Qualified Code(s): A41.9 - Sepsis, unspecified organism (2) UTI (urinary tract infection) Priority: Primary Status: Acute Qualifiers: Urinary tract infection type: acute cystitis Hematuria presence: without hematuria Qualified Code(s): N30.00 - Acute cystitis without hematuria (3) CAD (coronary artery disease) Priority: Secondary Status: Chronic Qualifiers: Coronary Disease-Associated Artery/Lesion type: bypass graft [place] vs. 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 difficile colitis Priority: Primary Status: Acute (6) Hypertension Priority: Secondary Status: Chronic Qualifiers: Hypertension type: essential hypertension Qualified Code(s): I10 - Essential (primary) hypertension (7) Elevated troponin Priority: Primary Status: Resolved (8) Hypokalemia Priority: Primary Status: Resolved (9) Hypomagnesemia Priority: Primary Status: Resolved (10) Physical deconditioning Priority: Primary Status: Acute Hospital course: Mr. Valderrama is a 82 year old male. He has had nonbloody diarrhea without nausea or vomiting or abdominal pain for about 3 days. He developed fever of 101.7 the day before admission. He has not been feeling well for the last 2-3 weeks. He was treated with an antibiotic at the beginning of that period of time. He developed difficulty voiding about 3 weeks ago. He received Ortez catheter. After about 3 days it was discontinued. It had to be reinserted a few days later. The patient has had unsteady gait for at least a few years. He sleeps an hour yesterday; scrapped his right elbow and hit his head. It did not change his ability to ambulate for the future. His labs showed UTI and positive C.diff. His BP was low initially but improved with IVF and abx. He was on rocephin for UTI and then switched to oral Keflex, He finished 7 days in total. Diarrhea has improved after oral vancomycin was started. Ortez was kept in and he will f/u with urology within 2 weeks. PT/OT have been consulted and ECF was recommended. Pt will be discharged to ECF today. He was instructed to continue oral vancomycin for 13 more days. f/u with PCP and Urology as scheduled. Discharge discussed with: patient, family Time spent discussing smoking cessation with patient: more than 10 minutes - Time Spent with Patient Total time spent providing and/or coordinating discharge services: 45 mins. Time spent: Greater than 30 minutes - Discharge Medications Prescriptions: New Lactobacillus [Culturelle] 1 each PO BID #60 cap.sprink Oseltamivir [Tamiflu] 75 mg PO BID #6 capsule Vancomycin Oral Soln [Firvanq] 125 mg PO QID #52 udc Continue Ibuprofen [Motrin] 800 mg PO TID PRN PRN Reason: BACK PAIN Tamsulosin HCl [Flomax] 0.4 mg PO HS Primidone [Mysoline] 50 mg PO BID Lisinopril [Zestril] 40 mg PO DAILY Atorvastatin [Lipitor] 80 mg PO HS glipiZIDE [Glipizide ER] 5 mg PO DAILY Metoprolol [Lopressor] 50 mg PO BID Nitroglycerin [Nitrostat] 0.4 mg SL PER PKG DI Home Medications: Atorvastatin [Lipitor] 80 mg PO HS 04/02/17 [History] Lisinopril [Zestril] 40 mg PO DAILY 04/02/17 [History] Metoprolol [Lopressor] 50 mg PO BID 04/02/17 [History] Nitroglycerin [Nitrostat] 0.4 mg SL PER PKG DI 04/02/17 [History] Primidone [Mysoline] 50 mg PO BID 04/02/17 [History] glipiZIDE [Glipizide ER] 5 mg PO DAILY 04/02/17 [History] Ibuprofen [Motrin] 800 mg PO TID PRN 08/13/18 [History] Tamsulosin HCl [Flomax] 0.4 mg PO HS 08/13/18 [History] Lactobacillus [Culturelle] 1 each PO BID #60 cap.sprink 08/21/18 [Rx] Oseltamivir [Tamiflu] 75 mg PO BID #6 capsule 08/21/18 [Rx] Vancomycin Oral Soln [Firvanq] 125 mg PO QID #52 udc 08/21/18 [Rx] Allergies/Adverse Reactions: Allergy/AdvReac Type Severity Reaction Status Date / Time No Known Allergies Allergy Verified 08/09/18 14:59 Date of admission: 08/13/18 19:15 Primary care physician: Jael Hobson CNP Consults: 08/14/18 16:32 Consult to Physical Therapy [CONS] Routine Comment: Evaluate, develop and implement POC Reason for Consult: weakness, possible placement. Does patient have active BEDREST order?: No Is patient medically & hemodynamically stable?: Yes OT [Consult to Occupational Therapy] [CONS] Routine Comment: Evaluate, develop and implement POC Reason for Consult: weakness, possible placement. Does patient have active BEDREST order?: No Is patient medically & hemodynamically stable?: Yes 08/16/18 08:31 Consult to Wire Photo Operator [CONS] Routine Reason for SW Consult: PT/OT RECOMMEND SNF. PATIENT AND FAMILY WANT POA. Anticipated date of discharge: 08/21/18 - Constitutional Vitals: Temp Pulse Resp BP Pulse Ox 98.6 F 62 18 118/56 96 08/21/18 10:53 08/21/18 10:53 08/21/18 10:53 08/21/18 10:53 08/21/18 10:53 General appearance: Present: A&O X 3, no acute distress, answers questions appropriately Exam: Gen: Alert, awake, Oriented to time,place and person Chest: Diminished breath sounds B/L, No wheezing, No crackles, No rales Heart: S1S2+ RRR, 2/6 murmurs Abd: Soft, NT, BS +, No organomegaly Ext: No edema, pulses are palpable, No calf tenderness Neuro : Benign findings Skin: No rash. - Patient Status Disposition: Transfer SNF Condition: Fair Functional capacity at discharge: uses cane/walker Overall status at discharge: patient is progressing back to baseline - Discharge Instructions Follow Up With: Jael Hobson CNP [Primary Care Provider] - 08/24/18 8:20 am - Diet and Activity Activity: increase activity as tolerated Diet: advance to your usual diet
[2018-08-21] MEDS: Lisinopril 20 MG TABLET PO SCH (15:09)
[2018-08-21 16:09] VITALS: BP 146/68
== END 2018-08-21 17:45 | DRG 698 ==
LOC: 3BNU 09:12 → EMEROOARM 09:12 → SUATTDRO 19:15 → 3BNU 19:36
PROVIDERS: ADMIT Internal Medicine; ATTEND Family Medicine

== ENCOUNTER 2019-03-20 17:47 | Inpatient (IN) ==
[2019-03-20] MEDS ORDERED: Naloxone 0.4 MG/ML INJ IVP PRN (20:57)
[2019-03-20] MEDS ORDERED: D5% in Water 1,000 ML IVC PRN (21:40)
[2019-03-20] MEDS ORDERED: Dextrose Gel 15 GM/37.5 ML TUBE PO PRN ×2 (21:40)
[2019-03-20] MEDS ORDERED: *HR* Dextrose 50 % in Water (Syg) 50 ML SYRINGE IVP PRN (21:40)
[2019-03-20] MEDS ORDERED: Acetaminophen 325 MG TABLET PO PRN (22:02)
[2019-03-20] MEDS ORDERED: Ondansetron 4 MG/2 ML VIAL IVP PRN (22:02)
[2019-03-20] MEDS ORDERED: 0.9 % Sodium Chloride 1,000 ML IVC ONE (22:29)
[2019-03-20] MEDS ORDERED: Ringers Solution, Lactated 1,000 ML ONE (22:34)
[2019-03-20] MEDS ORDERED: Isovue-370 500 ML BOTTLE IVP ONE (22:39)
[2019-03-20 22:51] LABS: Hemoglobin 13.3 g/dL (12.9-16.9); Mean Corpuscular HGB Conc 31.4 g/dL (31.6-35.5); Mean Platelet Volume 10.4 fL (9.4-12.4); Red Cell Distribution Width 13.6 % (11.5-14.5)
[2019-03-20 22:53] LABS: Hematocrit 42.3 % (37.5-50.1); Mean Corpuscular Volume 95.3 fL (83.0-100.0); Platelet Count 139 K/mcL (140-400); Red Blood Count 4.44 M/mcL (4.19-5.50); White Blood Count 27.6 K/mcL (4.3-11.1)
[2019-03-20] MEDS: Ringers Solution, Lactated 1,000 ML IVC SCH (22:53)
[2019-03-20] MEDS: Vancomycin Oral Soln 125 MG/2.5 ML UDC PO SCH (22:53)
[2019-03-20] MEDS: MetroNIDAZOLE 500 MG/100 ML 500 MG/100 ML BAG IVPB SCH (22:56)
[2019-03-20 22:59] LABS: INR 1.3; Prothrombin Time 14.7 Seconds (9.4-12.1)
[2019-03-20 23:02] LABS: Activated Partial Thrombo Time 32.3 Seconds (26.0-36.0)
[2019-03-20 23:16] LABS: Alanine Aminotransferase 8 Units/L (7-52); Albumin 3.2 g/dL (3.5-5.7); Albumin/Globulin Ratio 1.5 (1.1-2.2); Alkaline Phosphatase 41 Units/L (34-104); Aspartate Amino Transferase 27 Units/L (13-39); BUN/Creatinine Ratio 19 (6-26); Bilirubin,Direct 0.2 mg/dL (0.0-0.2); Bilirubin,Indirect 0.8 mg/dL (0.0-1.2); Blood Urea Nitrogen 22 mg/dL (8-23); Calcium 8.1 mg/dL (8.6-10.3); Carbon Dioxide 15 mEq/L (23-29); Chloride 112 mEq/L (98-107); Globulin 2.2 g/dL (2.4-3.5); Glucose 156 mg/dL (70-105); Osmolality,Calculated 293 (280-300); Potassium 3.6 mEq/L (3.5-5.1); Sodium 138 mEq/L (136-145); Total Protein 5.4 g/dL (6.4-8.9); eGFR For African Americans > 60 (> 60); eGFR For Non-African Americans > 60 (> 60)
[2019-03-20 23:18] LABS: Lymphocytes # 1.7 K/mcL (0.6-4.6); Monocytes # 2.8 K/mcL (0.0-1.3); Neutrophils # 23.2 K/mcL (1.6-8.9); Platelet Estimate Normal (Normal)
[2019-03-20 23:20] LABS: Troponin I 0.07 ng/mL (< 0.04)
[2019-03-21] MEDS: Norepinephrine 4 MG in 0.9 % Sodium Chloride 250 ML IVC SCH (01:13)
[2019-03-21 03:35] LABS: VBG Ionized Calcium 1.18 mmol/L (1.15-1.35)
[2019-03-21 03:49] LABS: BUN/Creatinine Ratio 22 (6-26); Blood Urea Nitrogen 25 mg/dL (8-23); Calcium 7.8 mg/dL (8.6-10.3); Carbon Dioxide 16 mEq/L (23-29); Chloride 109 mEq/L (98-107); Glucose 153 mg/dL (70-105); Magnesium 1.3 mg/dL (1.6-2.6); Osmolality,Calculated 289 (280-300); Phosphorous 1.7 mg/dL (2.7-4.5); Potassium 3.6 mEq/L (3.5-5.1); Sodium 136 mEq/L (136-145); eGFR For African Americans > 60 (> 60); eGFR For Non-African Americans > 60 (> 60)
[2019-03-21 03:52] LABS: Troponin I 0.18 ng/mL (< 0.04)
[2019-03-21] MEDS ORDERED: Potassium Phosphate 44 MEQ in 0.9 % Sodium Chloride 250 ML IVPB ONE (04:02)
[2019-03-21] MEDS: *HR* Heparin 5,000 UNIT/ML VIAL SQ SCH ×2 (05:15→17:27)
[2019-03-21 06:35] LABS: Basophils % 0.2 %; Mean Platelet Volume 10.5 fL (9.4-12.4); Monocytes % 6.7 %
[2019-03-21 06:37] LABS: Basophils # 0.1 K/mcL (0.0-0.2); Hematocrit 37.7 % (37.5-50.1); Immature Granulocytes % 6.5 % (0-4); Mean Corpuscular HGB Conc 31.8 g/dL (31.6-35.5); Mean Corpuscular Hemoglobin 29.6 pg (28.0-33.3); Mean Corpuscular Volume 93.1 fL (83.0-100.0); Monocytes # 3.3 K/mcL (0.0-1.3); Platelet Count 198 K/mcL (140-400); Red Blood Count 4.05 M/mcL (4.19-5.50); Red Cell Distribution Width 13.7 % (11.5-14.5); Segmented Neutrophils % 84.6 %
[2019-03-21 07:04] LABS: White Blood Count 49.6 K/mcL (4.3-11.1)
[2019-03-21] MEDS ORDERED: Insulin LISPRO 300 UNITS/3 ML VIAL SQ SCH ×6 (07:30→21:00)
[2019-03-21] MEDS: MetroNIDAZOLE 500 MG/100 ML 500 MG/100 ML BAG IVPB SCH ×3 (07:41→23:30)
[2019-03-21] MEDS: Vancomycin Oral Soln 125 MG/2.5 ML UDC PO SCH ×4 (07:42→23:42)
[2019-03-21] MEDS: Ringers Solution, Lactated 1,000 ML IVC SCH ×2 (07:49→13:24)
[2019-03-21 14:55] LABS: Magnesium 1.8 mg/dL (1.6-2.6); Potassium 3.9 mEq/L (3.5-5.1)
[2019-03-21 15:15] LABS: Phosphorous 3.2 mg/dL (2.7-4.5)
[2019-03-21] MEDS ORDERED: *HR* Dextrose 50 % in Water (Syg) 50 ML SYRINGE IVP PRN (15:26)
[2019-03-21] MEDS ORDERED: D5% in Water 1,000 ML IVC PRN (15:26)
[2019-03-21] MEDS ORDERED: Dextrose Gel 15 GM/37.5 ML TUBE PO PRN ×2 (15:26)
[2019-03-21] MEDS: Insulin LISPRO 300 UNITS/3 ML VIAL SQ SCH ×2 (17:22→23:39)
[2019-03-21] MEDS ORDERED: Potassium Phosphate 44 MEQ in 0.9 % Sodium Chloride 250 ML IVPB PRN (17:23)
[2019-03-21] MEDS ORDERED: Calcium Gluconate 1gm/50mL 1 GM/50 ML BAG IVPB PRN (17:23)
[2019-03-21] MEDS ORDERED: Perflutren Lipid Microsphere 1.3 ML in 0.9 % Sodium Chloride 8.7 ML IVP ONE (18:51)
[2019-03-22] MEDS ORDERED: traZODone 50 MG TABLET PO PRN (00:37)
[2019-03-22 01:22] LABS: Phosphorous 1.8 mg/dL (2.7-4.5); Potassium 3.9 mEq/L (3.5-5.1)
[2019-03-22] MEDS: Ringers Solution, Lactated 1,000 ML IVC SCH (02:50)
[2019-03-22] MEDS: Norepinephrine 4 MG in 0.9 % Sodium Chloride 250 ML IVC SCH (03:19)
[2019-03-22 04:53] LABS: Hematocrit 32.8 % (37.5-50.1); Hemoglobin 10.8 g/dL (12.9-16.9); Mean Corpuscular HGB Conc 32.9 g/dL (31.6-35.5); Mean Corpuscular Hemoglobin 29.7 pg (28.0-33.3); Mean Corpuscular Volume 90.1 fL (83.0-100.0); Mean Platelet Volume 10.8 fL (9.4-12.4); Platelet Count 135 K/mcL (140-400); Red Blood Count 3.64 M/mcL (4.19-5.50); White Blood Count 21.2 K/mcL (4.3-11.1)
[2019-03-22 05:11] LABS: Lymphocytes # 1.7 K/mcL (0.6-4.6); Monocytes # 0.4 K/mcL (0.0-1.3); Neutrophils # 19.1 K/mcL (1.6-8.9)
[2019-03-22 05:13] LABS: BUN/Creatinine Ratio 22 (6-26); Blood Urea Nitrogen 18 mg/dL (8-23); Calcium 7.9 mg/dL (8.6-10.3); Carbon Dioxide 18 mEq/L (23-29); Chloride 113 mEq/L (98-107); Glucose 87 mg/dL (70-105); Osmolality,Calculated 281 (280-300); Phosphorous 1.7 mg/dL (2.7-4.5); Potassium 3.9 mEq/L (3.5-5.1); Sodium 135 mEq/L (136-145); eGFR For African Americans > 60 (> 60); eGFR For Non-African Americans > 60 (> 60)
[2019-03-22] MEDS: Insulin LISPRO 300 UNITS/3 ML VIAL SQ SCH ×2 (05:25→13:37)
[2019-03-22] MEDS: *HR* Heparin 5,000 UNIT/ML VIAL SQ SCH (05:56)
[2019-03-22] MEDS: Vancomycin Oral Soln 125 MG/2.5 ML UDC PO SCH ×2 (05:57→13:39)
[2019-03-22] MEDS: MetroNIDAZOLE 500 MG/100 ML 500 MG/100 ML BAG IVPB SCH ×2 (08:23→16:49)
[2019-03-22] MEDS ORDERED: Aspirin Enteric Coated 81 MG Tablet PO SCH (09:00)
[2019-03-22] MEDS ORDERED: *HR* Dextrose 50 % in Water (Syg) 50 ML SYRINGE IVP PRN (18:06)
[2019-03-22] MEDS ORDERED: Ibuprofen 800 MG TABLET PO PRN (18:06)
[2019-03-22] MEDS ORDERED: Acetaminophen 325 MG TABLET PO PRN (18:06)
[2019-03-22] MEDS ORDERED: Dextrose Gel 15 GM/37.5 ML TUBE PO PRN ×2 (18:06)
[2019-03-22] MEDS ORDERED: Naloxone 0.4 MG/ML INJ IVP PRN (18:06)
[2019-03-22] MEDS ORDERED: Ondansetron 4 MG/2 ML VIAL IVP PRN (18:06)
[2019-03-22] MEDS ORDERED: Calcium Gluconate 1gm/50mL 1 GM/50 ML BAG IVPB PRN (18:06)
[2019-03-22] MEDS ORDERED: NON-FORMULARY MEDICATION 1 EACH EACH (Trazodone Hcl 100 MG) PO PRN (18:06)
[2019-03-22] MEDS ORDERED: D5% in Water 1,000 ML IVC PRN (18:06)
[2019-03-22] MEDS ORDERED: Potassium Phosphate 44 MEQ in 0.9 % Sodium Chloride 250 ML IVPB PRN (18:06)
[2019-03-22] MEDS: traZODone 50 MG TABLET PO PRN (21:37)
[2019-03-23] MEDS: MetroNIDAZOLE 500 MG/100 ML 500 MG/100 ML BAG IVPB SCH ×4 (00:30→23:16)
[2019-03-23] MEDS: Vancomycin Oral Soln 125 MG/2.5 ML UDC PO SCH ×5 (00:36→23:15)
[2019-03-23] MEDS: Insulin LISPRO 300 UNITS/3 ML VIAL SQ SCH ×5 (00:39→23:08)
[2019-03-23 04:17] LABS: Hematocrit 32.9 % (37.5-50.1); Hemoglobin 10.8 g/dL (12.9-16.9); Mean Corpuscular HGB Conc 32.8 g/dL (31.6-35.5); Mean Corpuscular Hemoglobin 29.1 pg (28.0-33.3); Mean Corpuscular Volume 88.7 fL (83.0-100.0); Mean Platelet Volume 10.9 fL (9.4-12.4); Platelet Count 140 K/mcL (140-400); Red Blood Count 3.71 M/mcL (4.19-5.50); Red Cell Distribution Width 13.8 % (11.5-14.5); White Blood Count 11.6 K/mcL (4.3-11.1)
[2019-03-23 04:36] LABS: BUN/Creatinine Ratio 24 (6-26); Blood Urea Nitrogen 19 mg/dL (8-23); Carbon Dioxide 19 mEq/L (23-29); Chloride 107 mEq/L (98-107); Glucose 136 mg/dL (70-105); Osmolality,Calculated 284 (280-300); Potassium 3.8 mEq/L (3.5-5.1); Sodium 135 mEq/L (136-145); eGFR For African Americans > 60 (> 60); eGFR For Non-African Americans > 60 (> 60)
[2019-03-23] MEDS: *HR* Heparin 5,000 UNIT/ML VIAL SQ SCH ×2 (06:11→17:34)
[2019-03-23] MEDS: Aspirin Enteric Coated 81 MG Tablet PO SCH (09:55)
[2019-03-23] MEDS: traZODone 50 MG TABLET PO PRN (23:15)
[2019-03-24 04:44] LABS: Hematocrit 32.7 % (37.5-50.1); Hemoglobin 10.7 g/dL (12.9-16.9); Mean Corpuscular HGB Conc 32.7 g/dL (31.6-35.5); Mean Corpuscular Hemoglobin 29.2 pg (28.0-33.3); Mean Corpuscular Volume 89.3 fL (83.0-100.0); Mean Platelet Volume 11.4 fL (9.4-12.4); Platelet Count 149 K/mcL (140-400); Red Blood Count 3.66 M/mcL (4.19-5.50); Red Cell Distribution Width 13.6 % (11.5-14.5); White Blood Count 7.7 K/mcL (4.3-11.1)
[2019-03-24 04:56] LABS: BUN/Creatinine Ratio 19 (6-26); Blood Urea Nitrogen 17 mg/dL (8-23); Calcium 8.2 mg/dL (8.6-10.3); Carbon Dioxide 23 mEq/L (23-29); Chloride 110 mEq/L (98-107); Glucose 122 mg/dL (70-105); Osmolality,Calculated 287 (280-300); Potassium 3.8 mEq/L (3.5-5.1); Sodium 137 mEq/L (136-145); eGFR For African Americans > 60 (> 60); eGFR For Non-African Americans > 60 (> 60)
[2019-03-24] MEDS: Vancomycin Oral Soln 125 MG/2.5 ML UDC PO SCH ×3 (05:42→18:09)
[2019-03-24] MEDS: *HR* Heparin 5,000 UNIT/ML VIAL SQ SCH ×2 (05:42→18:07)
[2019-03-24] MEDS: Insulin LISPRO 300 UNITS/3 ML VIAL SQ SCH (05:50)
[2019-03-24] MEDS: Aspirin Enteric Coated 81 MG Tablet PO SCH (07:47)
[2019-03-24] MEDS: MetroNIDAZOLE 500 MG/100 ML 500 MG/100 ML BAG IVPB SCH ×2 (07:48→18:05)
[2019-03-25] MEDS: Vancomycin Oral Soln 125 MG/2.5 ML UDC PO SCH ×4 (00:16→18:09)
[2019-03-25] MEDS: traZODone 50 MG TABLET PO PRN (00:16)
[2019-03-25] MEDS: MetroNIDAZOLE 500 MG/100 ML 500 MG/100 ML BAG IVPB SCH ×3 (00:17→16:02)
[2019-03-25 02:29] LABS: Basophils # 0.1 K/mcL (0.0-0.2); Basophils % 0.7 %; Eosinophils # 0.2 K/mcL (0.0-0.6); Eosinophils % 2.1 %; Hematocrit 34.6 % (37.5-50.1); Hemoglobin 11.3 g/dL (12.9-16.9); Immature Granulocytes % 2.9 % (0-4); Lymphocytes % 25.2 %; Mean Corpuscular HGB Conc 32.7 g/dL (31.6-35.5); Mean Corpuscular Hemoglobin 29.4 pg (28.0-33.3); Mean Corpuscular Volume 89.9 fL (83.0-100.0); Monocytes # 0.7 K/mcL (0.0-1.3); Monocytes % 9.2 %; Neutrophils # 4.8 K/mcL (1.6-8.9); Platelet Count 154 K/mcL (140-400); Red Blood Count 3.85 M/mcL (4.19-5.50); Red Cell Distribution Width 13.4 % (11.5-14.5); Segmented Neutrophils % 59.9 %
[2019-03-25 02:43] LABS: BUN/Creatinine Ratio 23 (6-26); Blood Urea Nitrogen 21 mg/dL (8-23); Calcium 8.3 mg/dL (8.6-10.3); Carbon Dioxide 22 mEq/L (23-29); Chloride 108 mEq/L (98-107); Glucose 129 mg/dL (70-105); Magnesium 1.6 mg/dL (1.6-2.6); Osmolality,Calculated 287 (280-300); Phosphorous 3.3 mg/dL (2.7-4.5); Potassium 3.9 mEq/L (3.5-5.1); Sodium 136 mEq/L (136-145); eGFR For African Americans > 60 (> 60); eGFR For Non-African Americans > 60 (> 60)
[2019-03-25] MEDS: *HR* Heparin 5,000 UNIT/ML VIAL SQ SCH ×2 (05:50→18:08)
[2019-03-25] MEDS: Aspirin Enteric Coated 81 MG Tablet PO SCH (08:34)
[2019-03-26] MEDS: Vancomycin Oral Soln 125 MG/2.5 ML UDC PO SCH ×4 (00:18→17:44)
[2019-03-26] MEDS: MetroNIDAZOLE 500 MG/100 ML 500 MG/100 ML BAG IVPB SCH ×3 (00:19→16:06)
[2019-03-26 02:20] LABS: Hematocrit 35.9 % (37.5-50.1); Hemoglobin 11.7 g/dL (12.9-16.9); Mean Corpuscular HGB Conc 32.6 g/dL (31.6-35.5); Mean Corpuscular Hemoglobin 29.1 pg (28.0-33.3); Mean Corpuscular Volume 89.3 fL (83.0-100.0); Mean Platelet Volume 10.8 fL (9.4-12.4); Platelet Count 159 K/mcL (140-400); Red Blood Count 4.02 M/mcL (4.19-5.50); Red Cell Distribution Width 13.5 % (11.5-14.5); White Blood Count 8.1 K/mcL (4.3-11.1)
[2019-03-26 02:39] LABS: BUN/Creatinine Ratio 23 (6-26); Blood Urea Nitrogen 22 mg/dL (8-23); Calcium 8.5 mg/dL (8.6-10.3); Carbon Dioxide 25 mEq/L (23-29); Chloride 106 mEq/L (98-107); Glucose 115 mg/dL (70-105); Magnesium 1.6 mg/dL (1.6-2.6); Osmolality,Calculated 286 (280-300); Phosphorous 3.3 mg/dL (2.7-4.5); Potassium 4.2 mEq/L (3.5-5.1); Sodium 136 mEq/L (136-145); eGFR For African Americans > 60 (> 60); eGFR For Non-African Americans > 60 (> 60)
[2019-03-26 02:52] LABS: Lymphocytes # 2.3 K/mcL (0.6-4.6); Monocytes # 0.3 K/mcL (0.0-1.3); Neutrophils # 5.2 K/mcL (1.6-8.9); Platelet Estimate Normal (Normal); Reactive Lymphocytes Present (Not Present)
[2019-03-26] MEDS: *HR* Heparin 5,000 UNIT/ML VIAL SQ SCH ×2 (05:38→17:44)
[2019-03-26] MEDS: Aspirin Enteric Coated 81 MG Tablet PO SCH (09:49)
[2019-03-27] MEDS: Vancomycin Oral Soln 125 MG/2.5 ML UDC PO SCH ×5 (00:45→23:15)
[2019-03-27] MEDS: MetroNIDAZOLE 500 MG/100 ML 500 MG/100 ML BAG IVPB SCH ×4 (00:45→23:15)
[2019-03-27] MEDS: traZODone 50 MG TABLET PO PRN ×2 (00:49→23:26)
[2019-03-27 05:33] LABS: Basophils # 0.1 K/mcL (0.0-0.2); Basophils % 0.8 %; Eosinophils # 0.2 K/mcL (0.0-0.6); Eosinophils % 2.3 %; Hematocrit 35.3 % (37.5-50.1); Hemoglobin 11.9 g/dL (12.9-16.9); Immature Granulocytes % 9.9 % (0-4); Lymphocytes % 26.8 %; Mean Corpuscular HGB Conc 33.7 g/dL (31.6-35.5); Mean Corpuscular Hemoglobin 29.9 pg (28.0-33.3); Mean Corpuscular Volume 88.7 fL (83.0-100.0); Mean Platelet Volume 10.8 fL (9.4-12.4); Monocytes % 13.2 %; Neutrophils # 3.5 K/mcL (1.6-8.9); Platelet Count 173 K/mcL (140-400); Red Blood Count 3.98 M/mcL (4.19-5.50); Red Cell Distribution Width 13.4 % (11.5-14.5); White Blood Count 7.4 K/mcL (4.3-11.1)
[2019-03-27 05:53] LABS: BUN/Creatinine Ratio 21 (6-26); Blood Urea Nitrogen 20 mg/dL (8-23); Calcium 8.6 mg/dL (8.6-10.3); Carbon Dioxide 22 mEq/L (23-29); Chloride 107 mEq/L (98-107); Glucose 107 mg/dL (70-105); Magnesium 1.7 mg/dL (1.6-2.6); Osmolality,Calculated 283 (280-300); Phosphorous 3.1 mg/dL (2.7-4.5); Potassium 4.1 mEq/L (3.5-5.1); Sodium 135 mEq/L (136-145); eGFR For African Americans > 60 (> 60); eGFR For Non-African Americans > 60 (> 60)
[2019-03-27 05:54] LABS: Platelet Estimate Normal (Normal)
[2019-03-27] MEDS: *HR* Heparin 5,000 UNIT/ML VIAL SQ SCH ×2 (06:05→17:09)
[2019-03-27] MEDS: Aspirin Enteric Coated 81 MG Tablet PO SCH (09:09)
[2019-03-28 02:01] LABS: Hematocrit 36.5 % (37.5-50.1); Mean Corpuscular HGB Conc 32.9 g/dL (31.6-35.5); Mean Corpuscular Hemoglobin 29.8 pg (28.0-33.3); Mean Corpuscular Volume 90.6 fL (83.0-100.0); Mean Platelet Volume 10.8 fL (9.4-12.4); Platelet Count 179 K/mcL (140-400); Red Blood Count 4.03 M/mcL (4.19-5.50); Red Cell Distribution Width 13.7 % (11.5-14.5); White Blood Count 7.8 K/mcL (4.3-11.1)
[2019-03-28 02:22] LABS: BUN/Creatinine Ratio 23 (6-26); Blood Urea Nitrogen 20 mg/dL (8-23); Calcium 8.5 mg/dL (8.6-10.3); Carbon Dioxide 25 mEq/L (23-29); Chloride 105 mEq/L (98-107); Glucose 116 mg/dL (70-105); Magnesium 1.8 mg/dL (1.6-2.6); Osmolality,Calculated 282 (280-300); Potassium 4.2 mEq/L (3.5-5.1); Sodium 134 mEq/L (136-145); eGFR For African Americans > 60 (> 60); eGFR For Non-African Americans > 60 (> 60)
[2019-03-28 02:44] LABS: Eosinophils # 0.3 K/mcL (0.0-0.6); Monocytes # 0.5 K/mcL (0.0-1.3); Neutrophils # 4.8 K/mcL (1.6-8.9); Platelet Estimate Normal (Normal); Reactive Lymphocytes Present (Not Present)
[2019-03-28] MEDS: *HR* Heparin 5,000 UNIT/ML VIAL SQ SCH (05:29)
[2019-03-28] MEDS: Vancomycin Oral Soln 125 MG/2.5 ML UDC PO SCH ×2 (05:29→12:34)
[2019-03-28] MEDS: MetroNIDAZOLE 500 MG/100 ML 500 MG/100 ML BAG IVPB SCH (10:01)
[2019-03-28] MEDS: Aspirin Enteric Coated 81 MG Tablet PO SCH (10:01)
[2019-03-28 15:27] VITALS: BP 132/78
== END 2019-03-28 16:18 | DRG 871 ==
LOC: SUATTDRO 20:33 → ICNU 20:33 → 2NENU 03-22 17:50
PROVIDERS: ADMIT Internal Medicine; ATTEND Internal Medicine